=== PATIENT | male | born 1945 | race Caucasian/White ===

== ENCOUNTER 2023-08-21 22:40 | Observation (INO) | payer MEDICARE, SELFPAY ==
[2023-08-21] VITALS (48 sets, daily range): BP systolic 122–177; BP diastolic 57–123; PULSE 61–109; RESP 14–33; TEMP 36.4–36.8; O2SAT 89–100; BMI 20.1; BMI 20.6
--- NOTE | 2023-08-21 | CONS_ITS ---
CONSULTATION DATE: ??08/21/2023 REASON FOR CONSULTATION:? Incarcerated, recurrent right inguinal hernia. HISTORY OF PRESENT ILLNESS:? Patient is a 77-year-old male, presented to the ED with severe abdominal pain.? He was also noted to have tenderness in the right inguinal area.? His laboratory evaluation was normal.? He did undergo a CT scan of the abdomen and pelvis which revealed a right groin hernia with incarceration of a loop of small bowel, which was not reducible.? This was read as a femoral hernia, but on my review, appears to be possible recurrent inguinal hernia.? Patient did have a remote right inguinal hernia repair at 16 years of age.? Denies any other abdominal surgery.? He has had a known bulge there, which was usually reducible, but he has had intermittent symptoms and pain from it, but nothing like what began today.? He also had some nausea but no vomiting.?? He reports the pain is 10/10, was partially relieved with morphine.? His last meal was at approximately 9:00 this morning.? He forced himself to eat something even though he was not hungry.? He has been helping with his ?s care since she was recently hospitalized in [place] and doing more lifting and straining than normal.? He does take a baby aspirin daily.? Denies any nonsteroidal anti- inflammatory drugs or any other anticoagulants. PAST MEDICAL HISTORY:? Significant for coronary disease.? He has a remote history of coronary artery bypass grafting.? He has a history of asthma.? He is a former smoker.? He also has hyperlipidemia.? ALLERGIES:? He does report allergies to penicillin which causes hives. MEDICATIONS:? His home medications include albuterol, atorvastatin, buspirone, isosorbide mononitrate, losartan, nitroglycerin, omeprazole and zolpidem. PAST SURGICAL HISTORY:? As noted in the HPI.? It is also positive for a previous inguinal hernia repair. SOCIAL HISTORY:? He is .? He is a former smoker.? Denies alcohol use or illicit drug use. FAMILY HISTORY:? Noncontributory. REVIEW OF SYSTEMS:? Ten system review of systems is negative for recent weight loss or weight gain.? Denies increased fatigue or light-headedness.? Has had no earache or tinnitus.? No sinus congestion.? No sore throat or hoarseness.? No chest pain, palpitations or syncope.? No chronic cough, shortness of breath or hemoptysis.? He has had the abdominal pain and nausea.? No vomiting.? No melena, hematochezia or bright red blood per rectum.? No dysuria, frequency, urgency or hematuria.? No headaches, seizures or tremors.? No easy bruising or bleeding.? No heat or cold intolerance.? No polydipsia, polyphagia or polyuria. PHYSICAL EXAM:? VITAL SIGNS:? His blood pressure is 161/94.? Pulse is 88 and regular.? Respiratory rate is 18.? He is afebrile.? O2 saturation is 98% on room air.? GENERAL:? In general, he is a well developed, well nourished male, in mild distress secondary to abdominal pain. HEENT:? Normocephalic, atraumatic.? Sclerae anicteric.? Conjunctivae are not injected.? Oral mucosa is moist without lesions. NECK:? Supple.? There is no adenopathy, thyromegaly or JVD. LUNGS:? Clear bilaterally.? CARDIAC EXAM:? Regular rhythm and rate without appreciable murmurs, rubs or gallops. ABDOMEN:? Scaphoid.? There are positive bowel sounds.? It is currently non- tender, non-distended.? There is a tender mass over the right groin which is partially reducible.? There are no overlying skin changes or erythema or edema. SKIN:? Otherwise warm and dry without lesions, rashes or ulcers. NEURO EXAM:? Non-focal.? Non-lateralizing.? Patient is awake, alert, oriented with appropriate affect. DIAGNOSTIC TESTING:? CT images were personally reviewed, as was the laboratory evaluation. ASSESSMENT:? A 77-year-old male with acutely incarcerated right inguinal hernia, possible recurrent inguinal versus femoral hernia with small bowel loop incarcerated. PLAN:? To proceed with emergent reduction and repair of a hernia with assessment of the bowel.? We did discuss the possibility of need for bowel resection via the hernia versus via laparotomy, as well as the risks of bleeding, infection, bowel injury or leak, nerve injury, blood clot, pulmonary embolus, heart attack, anesthetic complications, need for further surgery or mesh removal.? All of his questions were answered.? Informed consent was obtained. CC:? Bryan Paz M.D. REDD
--- NOTE | 2023-08-21 | OP_ITS ---
OPERATION DATE: ??08/21/2023 PREOPERATIVE DIAGNOSIS:? Incarcerated right groin hernia with small bowel obstruction. POSTOPERATIVE DIAGNOSIS:? Incarcerated right femoral hernia. PROCEDURE:? Repair of right femoral hernia with primary closure and insertion of mesh in the floor of the inguinal canal. SURGEON:? Mitesh Thopmson M.D. ANESTHESIA:? General endotracheal. ESTIMATED BLOOD LOSS:? Less than 10 mL. INDICATIONS AND CONSENT:? Patient is a 77-year-old male with a long history of a right groin hernia that has been reducible.? He has had increasing symptoms from it recently, even today.? Developed severe abdominal pain and nausea, causing him to present to the emergency room, where he was found to have a small bowel obstruction with a loop of small bowel within a groin hernia, likely femoral.? This was partially reducible.? Indications, risks, benefits, alternatives of proceeding with herniorrhaphy with reduction and repair of the hernia were explained extensively to the patient, including risks of bleeding, infection, bowel injury or leak, recurrent hernia, nerve injury, blood clot, pulmonary embolus, heart attack, anesthetic complications, testicular injury, need for further surgery or mesh removal, possible knee for a laparotomy and small bowel resection.? All of his questions were answered.? Informed consent was obtained. PROCEDURE:? Patient brought to the operating room, placed in the supine position.? General anesthesia was induced.? He was prepped and draped in the usual sterile fashion.? Hernia was partially reduced but not completely.? A right groin incision was made with the scalpel blade and carried down through subcutaneous tissue using sharp dissection as well as electrocautery.? Sandra?s fascia was divided.? External oblique was attenuated.? It was opened along the direction of its fibers, down to the external inguinal ring.? Cord structures were mobilized and retracted.? Patient was noted to have a femoral hernia, which was also dissected out and freed up.? The floor of the inguinal canal was opened.? There was pre-peritoneal fat going through the inguinal canal.? The hernia defect was slightly enlarged, and this allowed reduction of the remaining pre-peritoneal fat.? It appeared that the small bowel had already reduced.? The wound was irrigated.? There was good hemostasis.? The femoral defect was then closed by re-approximating the lacunar ligament to the inguinal ligament, closing that extra space.? Care was taken to avoid undo tension or compression on the femoral vein.? Once this was complete, the wound was irrigated.? The floor was closed with interrupted 3-0 Vicryl suture.? There was no evidence of indirect hernia or direct hernia.? The patch was placed in the floor of the inguinal.? An opening was made for the cord structures, a keyhole.? The arms were placed around the cord structures.? The mesh was then secured circumferentially using interrupted 3-0 Vicryl sutures.? Care was taken to avoid undo tension on the cord structures.? The external oblique was then closed with a running 3-0 Vicryl suture.? The subcutaneous tissues were infiltrated with Exparel solution.? Sandra?s fascia was re-approximated with interrupted 3-0 Monocryl suture.? The skin was then closed with a running 4-0 subcuticular Monocryl suture and skin glue.? Sterile pressure dressing was applied.? Sponge and needle counts were correct x3 per nursing personnel.? Patient tolerated procedure, was extubated and sent to recovery room in good condition. CC:? Bryan Paz M.D. MTDMick
--- NOTE | 2023-08-21 15:40 | ECG_ITS ---
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
--- NOTE | 2023-08-21 15:47 | CT_ITS ---
[address] [address] Patient Name: YOSSI BOOTHE MRN: [id number] date: 1945 Sex: M Assigned Patient Location: ER Current Patient Location: .[facility] Accession/Order Number: [id number] Exam Date: 08/21/2023 16:54 Report Date: 08/21/2023 18:08 At the request of: SHAYNE INTERIANO Procedure: CT abdomen pelvis wo con EXAM: CT abdomen pelvis wo con HISTORY: right herna COMPARISON: 12/14/2019 TECHNIQUE: Axial CT imaging was performed through the abdomen and pelvis without intravenous contrast. Multiplanar reformats were performed. Dose reduction techniques were achieved by using automated exposure control and/or adjustment of mA and/or kV according to patient size and/or use of iterative reconstruction technique. FINDINGS: Lung bases: Lung bases are clear. No pleural effusion. There are bilateral pleural plaques. GI upper: Moderate hiatal hernia. Liver: Normal size and contour. Gallbladder: No significant abnormality. No cholelithiasis. Biliary system: No intra or extrahepatic biliary ductal dilatation. Spleen: Normal size. Pancreas: Unremarkable. Adrenal glands: Normal adrenal glands. Kidneys/ureters: Normal contours. No hydronephrosis. No nephrolithiasis or ureterolithiasis. Vessels: No aneurysm. Lymph Nodes: No lymphadenopathy. Small bowel: There is a transitional point in the efferent small bowel loop from the right femoral hernia with upstream dilatation of the small bowel loops, representing small bowel obstruction. Colon: No wall thickening or dilatation. There are innumerable colonic diverticulosis without evidence of acute diverticulitis. Constipation. Appendix: No findings of appendicitis. Peritoneal cavity: No free fluid or pneumoperitoneum. Lower : Prostatomegaly. There is trabeculation of the urinary bladder, likely due to chronic outlet obstruction. Bones: No acute bony abnormality. Soft tissues: There is a right femoral hernia with herniation of mesenteric fat and short segment of the small bowel loop. Additional findings: None. CT/CT abdomen pelvis wo con IMPRESSION: CT evidence of small bowel obstruction with transitional point in the right femoral hernia as described above. Moderate hiatal hernia. Electronically authenticated by: MURRAY TAI Date: 08/21/2023 18:08
[2023-08-21 15:48] LABS: Basophils Absolute Auto 0.1 10^3/uL (0.0-0.1); Basophils Percent Auto 0.6 % (0.2-2.0); Eosinophils Absolute Auto 0.1 10^3/uL (0.0-0.7); Eosinophils Percent Auto 1.1 % (0.9-7.0); Hematocrit 39.7 % (42.0-54.0); Hemoglobin 12.2 g/dL (14.0-18.0); Immature Granulocytes Abs Auto 0.02 10^3/uL (0.00-0.03); Immature Granulocytes Pct Auto 0.3 % (0.0-0.5); Lymphocytes Absolute Auto 1.2 10^3/uL (1.2-3.8); Lymphocytes Percent Auto 14.9 % (20.5-60.0); Mean Corpuscular HGB Conc 30.7 g/dL (29.9-35.2); Mean Corpuscular Hemoglobin 23.6 pg (25.9-34.0); Mean Corpuscular Volume 76.9 fL (80.0-94.0); Mean Platelet Volume 9.2 fL (9.5-13.5); Monocytes Absolute Auto 0.7 10^3/uL (0.3-0.8); Monocytes Percent Auto 8.9 % (1.7-12.0); Neutrophils Absolute Auto 5.9 10^3/uL (1.4-6.5); Neutrophils Percent Auto 74.2 % (43.0-75.0); Platelet Count 323 10^3/uL (150-450); Red Blood Count 5.16 10^6/uL (4.70-6.10); Red Cell Distribution Width 18.9 % (11.0-15.0)
[2023-08-21 16:03] LABS: Alanine Aminotransferase 28 U/L (16-63); Albumin Level 3.7 g/dL (3.4-5.0); Alkaline Phosphatase 85 U/L (46-116); Aspartate Amino Transferase 25 U/L (15-37); BUN Creatinine Ratio 17.2; Bilirubin Total 0.7 mg/dL (0.2-1.0); Calcium 9.3 mg/dL (8.5-10.1); Carbon Dioxide 31.9 mmol/L (21.0-32.0); Chloride 100 mmol/L (98-107); Estimated GFR (African America >60 (>=60); Estimated GFR (Non-African Ame >60 (>=60); Globulin 3.7 g/dL; Glucose 99 mg/dL (74-106); Potassium 3.9 mmol/L (3.5-5.1); Sodium 139 mmol/L (136-145); Total Protein 7.4 g/dL (6.4-8.2)
[2023-08-21 16:09] LABS: Lactate/Lactic Acid 1.2 mmol/L (0.4-2.0)
[2023-08-21] MEDS: MORPHINE SULFATE 2 MG/ML SYRINGE IV (16:40)
[2023-08-21] MEDS: KETOROLAC TROMETHAMINE 30 MG/ML VIAL 15 MG IVP (16:40)
[2023-08-21] MEDS: MORPHINE SULFATE 4 MG/ML VIAL 3 MG IV (17:48)
--- NOTE | 2023-08-21 17:58 | ED_ITS ---
HPI - Abdominal Pain General Chief Complaint: Abdominal Pain Stated Complaint: ABDOMINAL PAIN Time Seen by Provider: 08/21/23 15:38 Source: patient Mode of arrival: Wheelchair Limitations: no limitations History of Present Illness HPI narrative: The patient coming to us with the abdominal pain mostly lower abdomen as well as periumbilical that he has been having for the last 2 days There is also decreased p.o. intake no nausea no vomiting no change in bowel movement The patient pain is 10 out of 10 with no radiation and no burning with urination Related Data Home Medications Medication Instructions Recorded Confirmed albuterol sulfate 90 mcg/actuation 2 puff inhalation Q4H PRN 08/21/23 08/21/23 aerosol inhaler shortness of breath or wheezing atorvastatin 40 mg tablet 40 mg PO DAILY 08/21/23 08/21/23 buspirone 15 mg tablet 15 mg PO BID 08/21/23 08/21/23 isosorbide mononitrate 60 mg 60 mg PO DAILY 08/21/23 08/21/23 tablet,extended release 24 hr losartan 25 mg tablet 25 mg PO DAILY 08/21/23 08/21/23 nitroglycerin 0.4 mg sublingual 0.4 mg sublingual Q5M PRN chest 08/21/23 08/21/23 tablet pain omeprazole 20 mg capsule,delayed 20 mg PO DAILY 08/21/23 08/21/23 release zolpidem 10 mg tablet 10 mg PO .qhs 08/21/23 08/21/23 Allergies Allergy/AdvReac Type Severity Reaction Status Date / Time Penicillins Allergy Hives Verified 08/21/23 15:24 Review of Systems ROS Status of ROS 10 or more systems reviewed and unremarkable except as noted in history and below PFSH PFS Social History Smoking status: Former smoker Exam Narrative Exam Narrative: Nurses notes and vital signs reviewed and patient is not hypoxic. General: Well-appearing and in no apparent distress. Skin: Warm, dry, no pallor noted. No rash. Head: Normocephalic, atraumatic. Neck: Supple, non-tender. Eye: Pupils are equal, round and EOMI. No scleral icterus. Ears, Nose, Mouth, and Throat: TM are clear, no nasal mucosal hypertrophy. Oral mucosa is moist, no posterior oropharynx erythema, uvula is mid-line Cardiovascular: Regular Rate and Rhythm without murmur, gallop or rub. Respiratory: No accessory muscle use or respiratory distress. Lungs are clear to auscultation, no wheezing, rales or rhonchi Chest Wall: no tenderness Back: No midline thoracic or lumbar vertebral tenderness. No CVA tenderness Musculoskeletal: normal ROM, no calf or popliteal tenderness, no lower ext remity edema/swelling GI: Abdomen is soft, the patient have no specific tenderness in the abdomen but he does have a right inguinal swelling that is almost 4 x 5 cm oval in shape and nonreducible and tender, there is no swelling down his scrotum No tenderness to palpation. No rebound, guarding, or rigidity noted. Neurological: A&O x4. No cranial nerve dysfunction observed. No truncal ataxia. Moves all extremities. Sensation intact. Psychiatric: Cooperative and interactive. Normal mood and affect. Constitutional Vital Signs, click to edit/add: Last Vital Signs Temp 97.9 F 08/21/23 15:25 Pulse 88 08/21/23 18:40 Resp 32 H 08/21/23 18:40 BP 161/94 H 08/21/23 18:30 Pulse Ox 98 08/21/23 18:40 Course Vital Signs Vital signs: Vital Signs Temperature 97.9 F 08/21/23 15:25 Pulse Rate 72 08/21/23 15:25 Respiratory Rate 20 08/21/23 15:25 Blood Pressure 136/98 H 08/21/23 15:25 Pulse Oximetry 97 08/21/23 15:25 Temperature 97.9 F 08/21/23 15:25 Pulse Rate 88 08/21/23 18:40 Respiratory Rate 32 H 08/21/23 18:40 Blood Pressure 161/94 H 08/21/23 18:30 Pulse Oximetry 98 08/21/23 18:40 MDM - Abdominal Pain MDM Narrative Medical decision making narrative: Patient EKG showing sinus rhythm with a heart rate [address] elevation The patient presenting with a right femoral hernia pain as well as no nausea but decreased p.o. intake and his last meal was this morning at 9 AM CBC and chemistry showed no acute significant pathology but the patient CAT scan shows small bowel obstruction with a femoral hernia The patient case was discussed with Dr. Thompson in general surgery and the patient will be admitted under the hospitalist for possible surgery The patient will be n.p.o. The patient will be admitted under Dr. Quezada and the case was discussed with Dr. Guevara Lab Data Labs: Lab Results 08/21/23 Range/Units 15:37 WBC 8.0 (4.0-11.0) 10^3/uL RBC 5.16 (4.70-6.10) 10^6/uL Hgb 12.2 L (14.0-18.0) g/dL Hct 39.7 L (42.0-54.0) % MCV 76.9 L (80.0-94.0) fL MCH 23.6 L (25.9-34.0) pg MCHC 30.7 (29.9-35.2) g/dL RDW 18.9 H (11.0-15.0) % Plt Count 323 (150-450) 10^3/uL MPV 9.2 L (9.5-13.5) fL Neut % (Auto) 74.2 (43.0-75.0) % Lymph % (Auto) 14.9 L (20.5-60.0) % [place] % (Auto) 8.9 (1.7-12.0) % Eos % (Auto) 1.1 (0.9-7.0) % Baso % (Auto) 0.6 (0.2-2.0) % Neut # (Auto) 5.9 (1.4-6.5) 10^3/uL Lymph # (Auto) 1.2 (1.2-3.8) 10^3/uL [place] # (Auto) 0.7 (0.3-0.8) 10^3/uL Eos # (Auto) 0.1 (0.0-0.7) 10^3/uL Baso # (Auto) 0.1 (0.0-0.1) 10^3/uL Abs Immat Gran (auto) 0.02 (0.00-0.03) 10^3/uL Imm/Tot Granulo (auto) 0.3 (0.0-0.5) % Sodium 139 (136-145) mmol/L Potassium 3.9 (3.5-5.1) mmol/L Chloride 100 (98-107) mmol/L Carbon Dioxide 31.9 (21.0-32.0) mmol/L Anion Gap 11.0 BUN 16.0 (7.0-18.0) mg/dL Creatinine 0.93 (0.70-1.30) mg/dL Est GFR ( Amer) >60 (>=60) Est GFR (Non-Af Amer) >60 (>=60) BUN/Creatinine Ratio 17.2 Glucose 99 (74-106) mg/dL Lactate 1.2 (0.4-2.0) mmol/L Calcium 9.3 (8.5-10.1) mg/dL Total Bilirubin 0.7 (0.2-1.0) mg/dL AST 25 (15-37) U/L ALT 28 (16-63) U/L Alkaline Phosphatase 85 (46-116) U/L Troponin I High Sens 20.0 (4.0-76.1) pg/mL Total Protein 7.4 (6.4-8.2) g/dL Albumin 3.7 (3.4-5.0) g/dL Globulin 3.7 g/dL Albumin/Globulin Ratio 1.0 Discharge Plan Discharge Chief Complaint: Abdominal Pain Clinical Impression: Femoral hernia, SBO (small bowel obstruction) Patient Disposition: Admitted As Inpatient Time of Disposition Decision: 19:02
--- NOTE | 2023-08-21 19:18 | PM.GSCN ---
History of Present Illness Consult details Consult date: 08/21/23 Narrative: patient seen/examined/chart and ct scan images reviewed; consult dictated; 77 yo male with severe abd pain that began this morning; evidence of small bowel obstruction with incarcerated loop of small bowel in likely recurrent right inguinal hernia, verses right femoral hernia; plan emergent surgery for reduction/repair of hernia; likely mesh insertion; possibility of need for laparotomy/small bowel resection; informed consent obtained. PFSH PFS Social History Smoking status: Former smoker Meds Home Medications and Allergies Home Medications Medication Instructions Recorded Confirmed Type albuterol sulfate 90 mcg/actuation 2 puff inhalation Q4H PRN 08/21/23 08/21/23 History aerosol inhaler shortness of breath or wheezing atorvastatin 40 mg tablet 40 mg PO DAILY 08/21/23 08/21/23 History buspirone 15 mg tablet 15 mg PO BID 08/21/23 08/21/23 History isosorbide mononitrate 60 mg 60 mg PO DAILY 08/21/23 08/21/23 History tablet,extended release 24 hr losartan 25 mg tablet 25 mg PO DAILY 08/21/23 08/21/23 History nitroglycerin 0.4 mg sublingual 0.4 mg sublingual Q5M PRN chest 08/21/23 08/21/23 History tablet pain omeprazole 20 mg capsule,delayed 20 mg PO DAILY 08/21/23 08/21/23 History release zolpidem 10 mg tablet 10 mg PO .qhs 08/21/23 08/21/23 History Allergies Allergy/AdvReac Type Severity Reaction Status Date / Time Penicillins Allergy Hives Verified 08/21/23 15:24 Exam Constitutional Vital Signs, click to edit/add: Last Vital Signs Temp 97.9 F 08/21/23 15:25 Pulse 88 08/21/23 18:40 Resp 32 H 08/21/23 18:40 BP 161/94 H 08/21/23 18:30 Pulse Ox 98 08/21/23 18:40 Results Labs Labs: Abnormal lab results 08/21/23 Range/Units 15:37 Hgb 12.2 L (14.0-18.0) g/dL Hct 39.7 L (42.0-54.0) % MCV 76.9 L (80.0-94.0) fL MCH 23.6 L (25.9-34.0) pg RDW 18.9 H (11.0-15.0) % MPV 9.2 L (9.5-13.5) fL Lymph % (Auto) 14.9 L (20.5-60.0) % Diabetes panel 08/21/23 Range/Units 15:37 Sodium 139 (136-145) mmol/L Potassium 3.9 (3.5-5.1) mmol/L Chloride 100 (98-107) mmol/L Carbon Dioxide 31.9 (21.0-32.0) mmol/L BUN 16.0 (7.0-18.0) mg/dL Creatinine 0.93 (0.70-1.30) mg/dL Glucose 99 (74-106) mg/dL Calcium 9.3 (8.5-10.1) mg/dL AST 25 (15-37) U/L ALT 28 (16-63) U/L Alkaline Phosphatase 85 (46-116) U/L Total Protein 7.4 (6.4-8.2) g/dL Albumin 3.7 (3.4-5.0) g/dL Calcium panel 08/21/23 Range/Units 15:37 Calcium 9.3 (8.5-10.1) mg/dL Albumin 3.7 (3.4-5.0) g/dL Pituitary panel 08/21/23 Range/Units 15:37 Sodium 139 (136-145) mmol/L Potassium 3.9 (3.5-5.1) mmol/L Chloride 100 (98-107) mmol/L Carbon Dioxide 31.9 (21.0-32.0) mmol/L BUN 16.0 (7.0-18.0) mg/dL Creatinine 0.93 (0.70-1.30) mg/dL Glucose 99 (74-106) mg/dL Calcium 9.3 (8.5-10.1) mg/dL Adrenal panel 08/21/23 Range/Units 15:37 Sodium 139 (136-145) mmol/L Potassium 3.9 (3.5-5.1) mmol/L Chloride 100 (98-107) mmol/L Carbon Dioxide 31.9 (21.0-32.0) mmol/L BUN 16.0 (7.0-18.0) mg/dL Creatinine 0.93 (0.70-1.30) mg/dL Glucose 99 (74-106) mg/dL Calcium 9.3 (8.5-10.1) mg/dL Total Bilirubin 0.7 (0.2-1.0) mg/dL AST 25 (15-37) U/L ALT 28 (16-63) U/L Alkaline Phosphatase 85 (46-116) U/L Total Protein 7.4 (6.4-8.2) g/dL Albumin 3.7 (3.4-5.0) g/dL All other labs normal.
[2023-08-21] MEDS: CLINDAMYCIN PHOSPHATE/D5W 900 MG/50 ML PIGGYBACK 100 MG IV (19:46)
[2023-08-21] MEDS: BUPIVACAINE LIPOSOME/PF 266 MG/13.3 ML VIAL 13.3 MG INJ (20:50)
[2023-08-21] MEDS: BUPIVACAINE HCL 0.25% PF 25 MG/10 ML VIAL INJ (20:50)
[2023-08-21] MEDS: LABETALOL HCL 20 MG/4 ML SYRINGE 10 MG IV (21:20)
[2023-08-21] MEDS: LACTATED RINGER'S SOLUTION 1,000 ML 75 ML IV (21:34)
--- NOTE | 2023-08-21 21:36 | ECG_ITS ---
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
[2023-08-21] MEDS: METOPROLOL TARTRATE 5 MG/5 ML VIAL IVP (22:03)
[2023-08-21] MEDS: PANTOPRAZOLE SODIUM 40 MG VIAL IV (23:43)
[2023-08-22] VITALS (15 sets, daily range): BP systolic 106–125; BP diastolic 57–70; PULSE 52–70; RESP 16–18; TEMP 36.4–36.9; O2SAT 94–98
--- NOTE | 2023-08-22 00:51 | P.PN_ITS ---
Progress Note: Subjective Subjective Interval history: CC: Lower abdomen pain HPI: This is a very pleasant 77 years old male who presents with above complaints. Patient stating that he has been experiencing lower abdominal pain for the last 2 days. Nonradiating. Constant. Accompanied by decreased appetite. Evaluation in the emergency room has been significant for incarcerated hernia with loops of bowel trapped in it. Dr. Thompson from general surgery had been consulted and taking patient to the operating room this evening. Patient's past medical history significant for hypertension, dyslipidemia. Exam Narrative Exam Narrative: ROS: 1.General: no fever, chills, not in distress 2.HEENT: no TIRADO, no blurry vision, no swallow problems, no nasal congestion, no sore throat 3.Pulmonary: no cough, SOB, wheezes 4.CVS: no CP, no palpitations, no BERTRAND, no SOB, no intermittent claudication 5.GI: See complaints 6.: no renal colic, no hematuria, urinary frequency or urgency 7.Extremities: no edema 8.Neurological: no dizziness, vertigo, double or blurry vision, no no focal weakness, no paresthesia, no swallow or speech problems 9.Musculosceletal: no joint pains, no joint swelling, no back pain 10.Dermatological: no skin rashes, no lesions, no pruritus 11.Hematological: no bleeding, no hx/o clots 12.Endocrinological: no heat/cold intolerance, no hx/o diabetes 13.Psychiatric: no suicidal or homicidal thoughts Physical Exam: Not in distress, pleasant, lucid, cooperative, Head - atraumatic, eyes - pupils equal, round, reactive to light, extra ocular movement intact, MMM Neck - supple, thyroid not enlarged, LN not palpated Lungs - clear to auscultation, no dullness on percussion CVS - heart sounds S1, S2, no additional murmurs gallop, regular rate and rhythm Gastrointestinal?abdomen is soft, non-tender, non-distended, no organomegaly, positive bowel sounds Extremities no clubbing, cyanosis or edema Neurological?cranial nerve II?XII grossly intact, no meningeal signs, no cerebellar signs, no sensory deficit Musculoskeletal - joints, no effusions, ROM preserved Dermatological - the skin dry, warm, no rashes Psychiatric?patient is AAO X3, patient has normal affect Constitutional Vital Signs, click to edit/add: Last Vital Signs Temp 98.1 F 08/22/23 00:38 Pulse 70 08/22/23 00:38 Resp 16 08/22/23 00:38 BP 125/70 08/22/23 00:38 Pulse Ox 98 08/22/23 00:38 O2 Del Method Nasal Cannula 08/22/23 00:38 O2 Flow Rate 2 08/22/23 00:38 Progress Note: Objective Labs Labs: Short CBC 08/21/23 Range/Units 15:37 WBC 8.0 (4.0-11.0) 10^3/uL Hgb 12.2 L (14.0-18.0) g/dL Hct 39.7 L (42.0-54.0) % Plt Count 323 (150-450) 10^3/uL BMP 08/21/23 15:37 Sodium 139 Potassium 3.9 Chloride 100 Carbon Dioxide 31.9 BUN 16.0 Creatinine 0.93 Glucose 99 Calcium 9.3 Liver Function 08/21/23 Range/Units 15:37 Total Bilirubin 0.7 (0.2-1.0) mg/dL AST 25 (15-37) U/L ALT 28 (16-63) U/L Alkaline Phosphatase 85 (46-116) U/L Albumin 3.7 (3.4-5.0) g/dL Progress Note: A&P Assessment and Plan (1) Hypertension: Assessment and Plan: Resume home medications Monitor closely on telemetry Adjust as needed (2) Femoral hernia: Assessment and Plan: Incarcerated femoral hernia with bowel obstruction?follow-up with Dr. Magana Symptoms control Diet advancement as per surgery Plan END: As the provider for the telehealth service, I attest that I introduced myself to the patient, provided my credentials, disclosed by location and determined that based on a review of the patient's chart and discussion with members of the patient's treatment team, telemedicine via real-time, 2 way, and interactive audio and video platform is an appropriate and effective means of providing the service. ?The patient and I mutually agree this visit is appropriate for telem edicine. ?The virtual encounter was taken place from? [facility] [place]. ?The encounter took approximately 35 minutes. ?The nurse was present during the entire time and I was able to move the stethoscope in appropriate directions. ?The patient was evaluated at the Hospital ? Portions of this note may be dictated using [employer] voice recognition software. Variances in spelling and vocabulary are possible and unintentional. Not all errors may be caught and/or corrected. Please notify the author if any discrepancies are noted and/or if the meaning of any statement is unclear.? ? Patient verbally consented for treatment via video visit with patient currently located at the [facility] and provider located in [place]. Telemedicine Attestation Telemedicine Attestation I conducted this encounter from [[place]] via secure live, [id number] video conference with the patient, located at [facility] with [bowel ob struction]. Prior to the interview, the risks and benefits of telemedicine were discussed with the patient and verbal consent was obtained.
[2023-08-22] MEDS: 0.9 % SODIUM CHLORIDE 1,000 ML 75 ML IV (01:59)
[2023-08-22 06:09] LABS: Basophils Percent Auto 0.5 % (0.2-2.0); Eosinophils Absolute Auto 0.1 10^3/uL (0.0-0.7); Eosinophils Percent Auto 1.2 % (0.9-7.0); Hematocrit 33.2 % (42.0-54.0); Immature Granulocytes Abs Auto 0.02 10^3/uL (0.00-0.03); Immature Granulocytes Pct Auto 0.2 % (0.0-0.5); Lymphocytes Absolute Auto 0.8 10^3/uL (1.2-3.8); Lymphocytes Percent Auto 9.5 % (20.5-60.0); Mean Corpuscular HGB Conc 30.1 g/dL (29.9-35.2); Mean Corpuscular Hemoglobin 23.4 pg (25.9-34.0); Mean Corpuscular Volume 77.8 fL (80.0-94.0); Mean Platelet Volume 9.5 fL (9.5-13.5); Monocytes Percent Auto 11.4 % (1.7-12.0); Neutrophils Absolute Auto 6.6 10^3/uL (1.4-6.5); Neutrophils Percent Auto 77.2 % (43.0-75.0); Platelet Count 230 10^3/uL (150-450); Red Blood Count 4.27 10^6/uL (4.70-6.10); Red Cell Distribution Width 18.6 % (11.0-15.0); White Blood Count 8.6 10^3/uL (4.0-11.0)
[2023-08-22 06:59] LABS: Alanine Aminotransferase 23 U/L (16-63); Albumin Globulin Ratio 0.9; Albumin Level 2.6 g/dL (3.4-5.0); Alkaline Phosphatase 60 U/L (46-116); Anion Gap 5.6; Aspartate Amino Transferase 19 U/L (15-37); Bilirubin Total 0.6 mg/dL (0.2-1.0); Calcium 8.1 mg/dL (8.5-10.1); Carbon Dioxide 32.3 mmol/L (21.0-32.0); Chloride 104 mmol/L (98-107); Estimated GFR (African America >60 (>=60); Estimated GFR (Non-African Ame >60 (>=60); Glucose 90 mg/dL (74-106); Potassium 3.9 mmol/L (3.5-5.1); Sodium 138 mmol/L (136-145); Total Protein 5.6 g/dL (6.4-8.2)
[2023-08-22] MEDS: ISOSORBIDE MONONITRATE 60 MG TAB.ER.24H PO (09:02)
[2023-08-22] MEDS: ATORVASTATIN CALCIUM 40 MG TABLET PO (09:03)
[2023-08-22] MEDS: LOSARTAN POTASSIUM 25 MG TABLET PO (09:03)
[2023-08-22] MEDS: BUSPIRONE HCL 15 MG TABLET PO (09:04)
--- NOTE | 2023-08-22 10:45 | SWNOTE1 ---
SW met with pt to discuss dc needs. 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 Pt's had a fall and a brain bleed so she is currently staying with their son in [place]. Pt's son has 2 dogs and they are bigger and they are not disciplined and will jump on him. Pt's son offered to have pt come live with him but pt does not feel he will be able to due to the dogs and bathrooms being upstairs and downstairs not one on the main level. Pt has spoken to social workers at [place] in regards to getting extra help in the home for him and his . He has been told that since she is ambulating well she does not qualify for SNF. Pt has also been told about assisted living and private caregivers and those costs being out of pocket. Pt is aware of medicaid and the spending down method. Pt has contacted jobs and family services and will call them again in regards to any other resources for help in the home. At this time his plan is to go home and his will stay with son until he is recovered. DIVYA did mention passport services, but this is if he qualifies as well. At this time pt is aware of all services that SW is aware of.
--- NOTE | 2023-08-22 11:34 | CM.NOTE ---
Rounds made with Dr. Quezada. Dr. Quezada to discuss plan with General Surgeon and potential discharge today.
--- NOTE | 2023-08-22 11:41 | P.HP_ITS ---
Patient seen and examined. I personally reviewed patients, chart, evaluated him and examined him. I discussed the case with Michael Nelson NP. 77 y presented with acute RLQ pain - found to have incarcerated femoral hernia with SBO and was taken to OR emergency. Operative note is not available for review. Doing better today. Has minimal post op pain. Tolerating oral diet. Cleared for discharge by Dr CARLOS. Exam Comfortable, sitting on a recliner. CTA b/l , normal RR NT, ND, BS+ 2. Post surgical wound not examined. Assessment and Plan: Incarcerated femoral hernia with SBP s/p mesh repair. Tolerating diet. Advanced to soft. Cleared for discharge by Surgery. CAD: stable. Outpatient f/u HTN: c/w home meds. Hospital Course: Patient admitted for incarcerated right femoral hernia, associated SBO and was taken to OR for hernia repair. Was seen earlier today - did well post op and had minimal pain post operatively. His diet was advanced to regular diet and he tolerated it w/o any GI symptoms. Cleared for d/c by General Surgery. Patient to fu with PCP and Surgery. Admission Diagnosis Right incarcerated femoral hernia with SBO CAD HTN Discharge diagnosis as above Discharge status stable. H&P: HPI History of Present Illness Chief complaint: ABDOMINAL PAIN Femoral Hernia Narrative: Date/Time of Exam: 08/22/23 1040 This is a 77-year-old male patient with a past medical history as outlined below including a known femoral hernia, who presented to the ED yesterday complaining of severe lower right quadrant abdominal pain. Patient reports intermittent abdominal pain and poor appetite for the last several months but this severe, acute pain developed suddenly yesterday. He denies any nausea or vomiting or fevers/chills. As his pain was unrelenting he presented to the ED yesterday for further evaluation. Work-up in the ED revealed a femoral hernia with incarcerated loops of small bowel and a small bowel obstruction. Labs were unremarkable. An EKG reveals likely old inferior wall changes consistent with the pt's known CAD and CABG. Dr. Spain was contacted by the ED and the patient was taken emergently last night for a laparoscopic small bowel resection w/ possible mesh implantation. The patient is doing well this morning with his pain adequately controlled at this time. He is up ambulating in the room and in the hallway. He reports being hungry and requesting that his diet be advanced. He reports passing flatus but no bowel movement postoperatively. Bowel sounds are noted on exam. We defer further diet advancement to the surgical team. At the time of my exam the patient is alert and oriented and denies any acute complaints other than hunger. He denies any chest pain, shortness of breath, cough, nausea, vomiting, or diarrhea. He reports longstanding history of RLQ femoral hernia, but to his knowledge, has no hx of small bowel obstruction or incarcerated hernia in the past. He has been admitted to the hospitalist service with the general surgery team on consult. Review of Systems ROS Status of ROS 10 or more systems reviewed and unremarkable except as noted in history and below [facility] Medical History (Updated 08/22/23 @ 11:59 by Leslie Rodriguez NP) Anxiety ?F41.9 - Anxiety disorder, unspecified (ICD-10) CAD (coronary artery disease) ?I25.10 - Atherosclerotic heart disease of [place] coronary artery without angina pectoris (ICD-10) Chronic GERD ?K21.9 - Gastro-esophageal reflux disease without esophagitis (ICD-10) History of asbestosis ?Z87.09 - Personal history of other diseases of the respiratory system (ICD- 10) Hyperlipidemia ?E78.5 - Hyperlipidemia, unspecified (ICD-10) Hypertension ?I10 - Essential (primary) hypertension (ICD-10) Surgical History (Updated 08/22/23 @ 12:42 by Shaikh Pilar MD) 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 Smoking status: Former smoker Non-prescribed substance use: denies use Previous occupational history: Retired Highest level of school completed/degree received: Associate degree: occupational, technical, vocational program Are you now , , , , never or living with a partner: In a typical week, how many times do you talk on the telephone with family, friends, or neighbors: 3 or more times per week How often do you get together with friends or relatives: 3 or more times per week How often do you attend scientologist or orthodox services: never Little interest or pleasure in doing things: not at all Feeling down, depressed, or hopeless: several days Feel stressed/tense/nervous/anxious/difficulty sleeping: rather much Life stressors: other Life stressor details: diagnosed with dementia Due to disability, difficulty making decisions: No Do you think of yourself as: straight/heterosexual Gender Identity: male Meds Home Medications and Allergies Home Medications Medication Instructions Recorded Confirmed Type albuterol sulfate 90 mcg/actuation 2 puff inhalation Q4H PRN 08/21/23 08/21/23 History aerosol inhaler shortness of breath or wheezing atorvastatin 40 mg tablet 40 mg PO DAILY 08/21/23 08/21/23 History buspirone 15 mg tablet 15 mg PO TID 08/21/23 08/22/23 History isosorbide mononitrate 60 mg 60 mg PO DAILY 08/21/23 08/21/23 History tablet,extended release 24 hr losartan 25 mg tablet 25 mg PO DAILY 08/21/23 08/21/23 History nitroglycerin 0.4 mg sublingual 0.4 mg sublingual Q5M PRN chest 08/21/23 08/21/23 History tablet pain omeprazole 20 mg capsule,delayed 20 mg PO DAILY 08/21/23 08/21/23 History release zolpidem 10 mg tablet 10 mg PO .qhs 08/21/23 08/21/23 History Allergies Allergy/AdvReac Type Severity Reaction Status Date / Time Penicillins Allergy Hives Verified 08/21/23 15:24 Exam Constitutional Vital Signs, click to edit/add: Last Vital Signs Temp 97.6 F 08/22/23 07:40 Pulse 52 L 08/22/23 09:55 Resp 17 08/22/23 09:02 BP 106/57 08/22/23 07:40 Pulse Ox 98 08/22/23 07:40 O2 Del Method Nasal Cannula 08/22/23 07:40 O2 Flow Rate 2 08/22/23 07:40 Common normals: no apparent distress, oriented x3, alert and well nourished General appearance: cooperative Orientation/consciousness: Yes awake HENMT Common normals: normocephalic, head/scalp atraumatic, hearing grossly normal bilaterally, external ears normal, external nose normal and moist oral mucous membranes Head and scalp: normocephalic and atraumatic Face and sinus: normal facial exam Nose: external nose normal External ear: external ears normal Eye Common normals: PERRL, EOMs intact bilaterally, conjunctivae normal and no s cleral icterus General eye: normal appearance of both eyes Alignment: alignment normal Eyelid: eyelids normal Conjunctiva: conjunctiva(e) normal Pupil: PERRL Neck & C-Spine Common normals: full ROM, supple and no JVD Chest Common normals: inspection of chest normal Chest: symmetrical chest wall rise Respiratory Common normals: normal respiratory effort, no retractions, no use of accessory muscles and clear to auscultation bilaterally Effort & inspection: able to speak in complete sentences Auscultation: clear to auscultation bilaterally and other (Unusual diaphragmatic groan noted w/ inspiration) Cardio Common normals: no JVD, regular rate, regular rhythm, S1 normal heart sound, S2 normal heart sound, no gallops, no clicks, no murmurs, no rub and peripheral pulses 2+ throughout Rate: regular rate Rhythm: regular rhythm Heart sounds: S1 normal and S2 normal Peripheral pulses: pulses 2+ throughout GI Common normals: Normal to inspection, nondistended, normoactive bowel sounds present, soft to palpation, no hepatosplenomegaly, no masses and no bruits Palpation: soft and no hepatosplenomegaly Bladder/kidney exam: bladder normal to palpation Back & Pelvis Common normals: thoracic and lumbar spine normal to inspection Extremity Common normals: normal capillary refill and no pedal edema General: normal exam except as noted; no clubbing and no cyanosis Neuro Nery Coma Scale: GCS not evaluated Common normals: oriented x3, CN's II-XII intact bilaterally, moves all extremities, no focal motor deficits and no sensory deficits noted Sensorium/orientation: awake and alert Speech: speech normal Motor exam: strength 5/5 throughout Psych Common normals: mental status grossly normal, thought process normal, affect normal and activity/motor behavior normal Thought process: normal thought process Results Labs Labs: Short CBC 08/21/23 08/22/23 Range/Units 15:37 05:11 WBC 8.0 8.6 (4.0-11.0) 10^3/uL Hgb 12.2 L 10.0 L (14.0-18.0) g/dL Hct 39.7 L 33.2 L (42.0-54.0) % Plt Count 323 230 (150-450) 10^3/uL BMP 08/21/23 08/22/23 15:37 05:11 Sodium 139 138 Potassium 3.9 3.9 Chloride 100 104 Carbon Dioxide 31.9 32.3 H BUN 16.0 15.0 Creatinine 0.93 0.88 Glucose 99 90 Calcium 9.3 8.1 L Liver Function 08/21/23 08/22/23 Range/Units 15:37 05:11 Total Bilirubin 0.7 0.6 (0.2-1.0) mg/dL AST 25 19 (15-37) U/L ALT 28 23 (16-63) U/L Alkaline Phosphatase 85 60 (46-116) U/L Albumin 3.7 2.6 L (3.4-5.0) g/dL Pulse Oximetry Attestation: I have reviewed the pertinent pulse oximetry results. Assessment and Plan Assessment and Plan (1) SBO (small bowel obstruction): Assessment and Plan: ACUTE * Adm inpatient * SBO 2/2 femoral hernia w/ incarcerated loops of SB * Consult Surgery - we appreciate Dr Spain assistance with this pt's care * S/p emergent surgery yesterday evening for laparoscopic SB resection and li lynne mesh placement (surgical note not available at time of exam for full procedures performed) * Defer Diet, pain management, and antibiotics to the surgical team. * Diet currently clear liquids - defer to surgery for advancement * Positive flatus and bowel sounds, but no BM to date. * NS IVF at 75 ml/hr for hydration * Strict I&O * No evidence of infection at this time * CBC/CMP daily (2) Hypertension: Assessment and Plan: CHRONIC * Continue home ARB, Imdur, BB. * PRN IVP Hydralazine for uncontrolled breakthrough HTN * BP currently well controlled (3) CAD (coronary artery disease): Assessment and Plan: CHRONIC * Continue home BB, ARB, statin, PRN NTG * Pt does not take daily low dose aspirin at home - defer to outpatient cardiology for management (4) Anxiety: Assessment and Plan: CHRONIC * Continue home Buspar (5) History of asbestosis: Assessment and Plan: CHRONIC * Continue home PRN albuterol * BLL/diaphragmatic groan noted on exam which pt reports is chronic - likely 2/2 known asbestosis
[2023-08-22 11:48] LABS: Bilirubin Urine NEGATIVE (NEGATIVE); Blood Urine NEGATIVE (NEGATIVE); Clarity Urine CLEAR (CLEAR); Color Urine YELLOW (YELLOW); Glucose Urine UA NEGATIVE (NEGATIVE); Ketones Urine NEGATIVE (NEGATIVE); Leukocyte Esterase Urine NEGATIVE (NEGATIVE); Nitrite Urine NEGATIVE (NEGATIVE); Protein Urine NEGATIVE (NEG/TRACE); Specific Gravity Urine 1.025 (1.005-1.025); Urobilinogen Urine 0.2 EU/dL (0.2-1.0)
[2023-08-22 11:49] LABS: Urine Microscopic Indicated NO
--- NOTE | 2023-08-22 14:20 | SWNOTE1 ---
At this time pt is inpatient. SW reviewed Important Message from Medicare form with pt. He does not have any questions at this time, he did ask if he was being discharged. SW let him know she is not sure but will let nurse know pt is asking. At this time pt does not have any questions in regards to IMM form, pt signed form. Original given to pt and copy placed on chart.
--- NOTE | 2023-08-22 15:20 | PM.GSPN ---
Progress Note: A&P Assessment and Plan (1) SBO (small bowel obstruction): Assessment and Plan: resolved; doing well; ok for discharge to home; f/u with me in 7-10 days, no lifting > 10 lbs for 4 weeks; no driving; may shower, no tub baths for 10 days; take tylenol as needed for pain; call with problems/questions. (2) Hypertension: (3) CAD (coronary artery disease): (4) Anxiety: (5) History of asbestosis: Subjective Subjective Interval history: POS# 1 s/p right femoral herniorrhaphy with mesh insertion for incarcerated femoral hernia with small bowel obstruction; doing well, denies abd pain; no N/V; not taking any pain meds; eating regular diet; voiding well, no bms; ambulating without difficulty. Exam Narrative Exam Narrative: abd: soft, nontender, nondistended; normal bs; incision without erythema or drainage; glue intact; no drainage or hematoma. Constitutional Vital Signs, click to edit/add: Last Vital Signs Temp 98.5 F 08/22/23 14:19 Pulse 56 L 08/22/23 14:23 Resp 18 08/22/23 14:19 BP 106/61 08/22/23 14:19 Pulse Ox 94 L 08/22/23 14:19 O2 Del Method Room Air 08/22/23 14:19 O2 Flow Rate 2 08/22/23 07:40
--- NOTE | 2023-08-22 15:47 | SWNOTE1 ---
Pt is in observation status. SW went back in and let pt know and reviewed BESS form with pt. Pt voiced understanding and did not have any questions at this time. Pt signed form, original given to pt and copy placed in chart.
--- NOTE | 2023-08-22 17:29 | NUTR.NU ---
Patient's MST score 5 indicates high nutritional risk d/t weight loss and diminished appetite. PO intakes in-house are 100% and weight loss was not able to be verified. Pt has chronic illness, was in [facility] for less than 24 hours. High risk for malnutrition not supported at this time.
--- NOTE | 2023-08-23 15:52 | CM.DCFOLLOWU ---
Person spoke with: patient How are you feeling? well How is your pain? just sore Did you understand your discharge instructions? yes Do you have any questions about your discharge instructions? no Were you given any prescriptions at discharge? no Were you able to get your prescriptions filled? N/A Do you understand how to take your medications as ordered? yes Do you have any questions about your follow up appointment and do you plan to keep your follow up appointment? no questions, scheduled follow up with Dr. Thompson Is there anything else that you would like to discuss? no Questions/Comments/Concerns/Other:
== END 2023-08-22 16:38 | disposition home or self-care (01) ==
PROVIDERS: Emergency Medicine; Surgery; Admitting Provider Internal Medicine; PCP Family Medicine; Visit Provider Nurse Practitioner
PROC: (CPT 49553; principal; 2023-08-21 19:30)
DX: K41.30 Unilateral femoral hernia, with obstruction, without gangrene, not specified as recurrent (principal); I10 Essential (primary) hypertension; I25.10 Atherosclerotic heart disease of native coronary artery without angina pectoris; F41.9 Anxiety disorder, unspecified; E78.5 Hyperlipidemia, unspecified; K21.9 Gastro-esophageal reflux disease without esophagitis; Z87.09 Personal history of other diseases of the respiratory system; Z90.2 Acquired absence of lung [part of]; Z98.890 Other specified postprocedural states; Z87.891 Personal history of nicotine dependence; Z79.899 Other long term (current) drug therapy
CPT/HCPCS: 49553; 36415; 74176; 80053; 81003; 83605; 84484; 85025; 93005; 94761; 96374; 96375; 96376; 99285; C1781; G0378; J2704; Q3014

== ENCOUNTER 2023-09-23 10:49 | Outpatient (OUT) | payer MEDICARE, SELFPAY ==
--- NOTE | 2023-09-23 11:08 | US_ITS ---
[address] [address] Patient Name: YOSSI BOOTHE MRN: [id number] date: 1945 Sex: M Assigned Patient Location: [place] Current Patient Location: [place] Accession/Order Number: [id number] Exam Date: 09/23/2023 11:13 Report Date: 09/23/2023 12:42 At the request of: MEGAN HARRISON Procedure: US scrotum EXAMINATION: US scrotum HISTORY: Epididymitis COMPARISON: No relevant comparison available. TECHNIQUE: High-resolution sonographic imaging of the scrotum and contents was performed. FINDINGS: The right testicle is normal in size, contour and homogeneous echotexture measuring 3.9 x 1.4 x 3.4 cm. Normal color and Doppler flow The right epididymis is normal. Small right hydrocele. Moderate right varicocele. The left testicle is normal in size, contour and homogeneous echotexture measuring 4.2 x 1.7 x 2.7 cm. Normal color and Doppler flow The left epididymis is normal. Small left hydrocele. Moderate left varicocele. US/US scrotum IMPRESSION: No evidence of epididymitis Moderate bilateral varicoceles Electronically authenticated by: YOSSI BROWN Date: 09/23/2023 12:42
== END 2023-09-23 10:50 | disposition home or self-care (01) ==
LOC: US 10:49
PROVIDERS: PCP Family Medicine; Visit Provider Urology
DX: N45.1 Epididymitis (principal); I86.1 Scrotal varices
CPT/HCPCS: 76870

== ENCOUNTER 2023-09-23 21:05 | Observation (INO) | payer MEDICARE, SELFPAY ==
[2023-09-23] VITALS (20 sets, daily range): BP systolic 124–164; BP diastolic 78–113; PULSE 77–106; RESP 6–33; TEMP 36.6; O2SAT 93–99
--- NOTE | 2023-09-23 21:25 | ED.ABDPAIN1 ---
HPI - Abdominal Pain General Chief Complaint: Abdominal Pain Stated Complaint: SOB Time Seen by Provider: 09/23/23 21:09 Source: patient Mode of arrival: Wheelchair Limitations: no limitations History of Present Illness HPI narrative: 77-year-old male presents for abdominal pain and not having a bowel movement. He recently had inguinal hernia surgery and then had trouble urinating and a Novak catheter was placed two days ago. No fever. He believes he is constipated. His appetite has been poor. Much of history is obtained from his doctor who accompanies him but also some from the patient. The pain is moderate to severe. Related Data Home Medications Medication Instructions Recorded Confirmed albuterol sulfate 90 mcg/actuation 2 puff inhalation Q4H PRN 08/21/23 08/21/23 aerosol inhaler shortness of breath or wheezing atorvastatin 40 mg tablet 40 mg PO DAILY 08/21/23 08/21/23 buspirone 15 mg tablet 15 mg PO TID 08/21/23 08/22/23 isosorbide mononitrate 60 mg 60 mg PO DAILY 08/21/23 08/21/23 tablet,extended release 24 hr losartan 25 mg tablet 25 mg PO DAILY 08/21/23 08/21/23 nitroglycerin 0.4 mg sublingual 0.4 mg sublingual Q5M PRN chest 08/21/23 08/21/23 tablet pain omeprazole 20 mg capsule,delayed 20 mg PO DAILY 08/21/23 08/21/23 release zolpidem 10 mg tablet 10 mg PO .qhs 08/21/23 08/21/23 Allergies Allergy/AdvReac Type Severity Reaction Status Date / Time Penicillins Allergy Hives Verified 08/21/23 15:24 Review of Systems ROS Narrative A ten point review of systems is negative except as noted above. [facility] Medical History (Updated 09/23/23 @ 22:57 by Kashif Thapa MD) Anxiety ?F41.9 - Anxiety disorder, unspecified (ICD-10) CAD (coronary artery disease) ?I25.10 - Atherosclerotic heart disease of [place] coronary artery without angina pectoris (ICD-10) Chronic GERD ?K21.9 - Gastro-esophageal reflux disease without esophagitis (ICD-10) Femoral hernia ?K41.90 - Unilateral femoral hernia, without obstruction or gangrene, not specified as recurrent (ICD-10) History of asbestosis ?Z87.09 - Personal history of other diseases of the respiratory system (ICD-10) Hyperlipidemia ?E78.5 - Hyperlipidemia, unspecified (ICD-10) Hypertension ?I10 - Essential (primary) hypertension (ICD-10) Surgical History (Updated 08/22/23 @ 12:42 by Shaikh Pilar MD) 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 Smoking status: Former smoker Non-prescribed substance use: denies use Previous occupational history: Retired Highest level of school completed/degree received: Associate degree: occupational, technical, vocational program Are you now , , , , never or living with a partner: In a typical week, how many times do you talk on the telephone with family, friends, or neighbors: 3 or more times per week How often do you get together with friends or relatives: 3 or more times per week How often do you attend samaritan or episcopalian services: never Little interest or pleasure in doing things: not at all Feeling down, depressed, or hopeless: several days Feel stressed/tense/nervous/anxious/difficulty sleeping: rather much Life stressors: other Life stressor details: diagnosed with dementia Due to disability, difficulty making decisions: No Do you think of yourself as: straight/heterosexual Gender Identity: male Exam Narrative Exam Narrative: Nurses note and vital signs reviewed and patient is not hypoxic. General: The patient appears well and in no apparent distress. Patient is resting comfortably on cart. Skin: Warm, dry, no pallor noted. There is no rash noted. Head: Normocephalic, atraumatic Eye: Normal conjunctiva, no drainage Ears, Nose, Mouth, and Throat: oral mucosa is moist. Nares patent. Cardiovascular: Regular Rate and Rhythm Respiratory: Patient is in no distress, no accessory muscle use, lungs are clear to auscultation, no wheezing, rales or rhonchi Back: non-tender. GI: tenderness present on the right side. No distention Musculoskeletal: The patient has no evidence of calf tenderness, no pitting edema, symmetrical pulses noted bilaterally Neurological: A&O, normal speech Psychiatric: Cooperative Constitutional Vital Signs, click to edit/add: Last Vital Signs Temp 97.8 F 09/23/23 21:09 Pulse 91 H 09/23/23 22:30 Resp 32 H 09/23/23 22:30 BP 124/86 09/23/23 22:20 Pulse Ox 98 09/23/23 22:30 O2 Del Method Room Air 09/23/23 21:09 Course Vital Signs Vital signs: Vital Signs Temperature 97.8 F 09/23/23 21:09 Pulse Rate 94 H 09/23/23 21:09 Respiratory Rate 18 09/23/23 21:09 Blood Pressure 161/92 H 09/23/23 21:09 Pulse Oximetry 99 09/23/23 21:09 Oxygen Delivery Method Room Air 09/23/23 21:09 Temperature 97.8 F 09/23/23 21:09 Pulse Rate 91 H 09/23/23 22:30 Respiratory Rate 32 H 09/23/23 22:30 Blood Pressure 124/86 09/23/23 22:20 Pulse Oximetry 98 09/23/23 22:30 Oxygen Delivery Method Room Air 09/23/23 21:09 MDM - Abdominal Pain MDM Narrative Medical decision making narrative: CAT scan findings are discussed with the patient and his doctor who is a nurse. I do not suspect partial bowel obstruction at this point and he'll be admitted for observation and hydration. Differential Diagnosis Differential diagnosis: Likely abdominal pain, constipation, diverticulitis, gastroenteritis and small bowel obstruction Lab Data Attestation: I reviewed the patient's lab results. Labs: Lab Results 09/23/23 09/23/23 Range/Units 21:15 21:30 WBC 10.5 (4.0-11.0) 10^3/uL RBC 5.79 (4.70-6.10) 10^6/uL Hgb 13.8 L (14.0-18.0) g/dL Hct 44.0 (42.0-54.0) % MCV 76.0 L (80.0-94.0) fL MCH 23.8 L (25.9-34.0) pg MCHC 31.4 (29.9-35.2) g/dL RDW 19.9 H (11.0-15.0) % Plt Count 286 (150-450) 10^3/uL MPV 9.2 L (9.5-13.5) fL Neut % (Auto) 77.9 H (43.0-75.0) % Lymph % (Auto) 11.0 L (20.5-60.0) % [place] % (Auto) 10.2 (1.7-12.0) % Eos % (Auto) 0.3 L (0.9-7.0) % Baso % (Auto) 0.3 (0.2-2.0) % Neut # (Auto) 8.2 H (1.4-6.5) 10^3/uL Lymph # (Auto) 1.2 (1.2-3.8) 10^3/uL [place] # (Auto) 1.1 H (0.3-0.8) 10^3/uL Eos # (Auto) 0.0 (0.0-0.7) 10^3/uL Baso # (Auto) 0.0 (0.0-0.1) 10^3/uL Abs Immat Gran (auto) 0.03 (0.00-0.03) 10^3/uL Imm/Tot Granulo (auto) 0.3 (0.0-0.5) % Sodium 130 L (136-145) mmol/L Potassium 3.8 (3.5-5.1) mmol/L Chloride 94 L (98-107) mmol/L Carbon Dioxide 26.8 (21.0-32.0) mmol/L Anion Gap 13.0 BUN 20.0 H (7.0-18.0) mg/dL Creatinine 1.22 (0.70-1.30) mg/dL Est GFR ( Amer) >60 (>=60) Est GFR (Non-Af Amer) 58 L (>=60) BUN/Creatinine Ratio 16.4 Glucose 138 H (74-106) mg/dL Calcium 9.9 (8.5-10.1) mg/dL Total Bilirubin 1.1 H (0.2-1.0) mg/dL Direct Bilirubin 0.2 (0.0-0.2) mg/dL AST 28 (15-37) U/L ALT 21 (16-63) U/L Alkaline Phosphatase 79 (46-116) U/L Total Protein 8.4 H (6.4-8.2) g/dL Albumin 3.9 (3.4-5.0) g/dL Globulin 4.5 g/dL Albumin/Globulin Ratio 0.9 Amylase 50 (25-115) U/L Lipase 39.0 (16.0-77.0) U/L Urine Color Dk. yellow (YELLOW) Urine Clarity Clear (CLEAR) Urine pH 5.0 (5.0-9.0) Ur Specific [place] >=1.030 A (1.005-1.025) Urine Protein >=300 A (NEG/TRACE) mg/dL Urine Glucose (UA) Negative (NEGATIVE) mg/dL Urine Ketones 15 A (NEGATIVE) mg/dL Urine Occult Blood Large A (NEGATIVE) Urine Nitrite Negative (NEGATIVE) Urine Bilirubin Small A (NEGATIVE) Urine Urobilinogen 0.2 (0.2-1.0) EU/dL Ur Leukocyte Esterase Trace A (NEGATIVE) Imaging Data CT scan - abdomen: Radiologist's impression: Procedure: CT abdomen pelvis w con EXAMINATION: CT Abdomen/Pelvis REPORT DATE: 09/23/2023 10:34 PM EDT INDICATION: Pain, recent inguinal hernia surgery COMPARISON(S): CT abdomen and pelvis 08/21/2023 TECHNIQUE: Contrast-enhanced axial CT through the abdomen and pelvis was performed. Coronal and sagittal reformats were provided. Individualized dose optimization techniques were used for this CT. FINDINGS: SUPPORT DEVICES: None. LOWER CHEST Calcified pleural plaques are noted bilaterally at the lung bases. Scarring and/or atelectasis at the lung bases. ABDOMEN/PELVIS Liver: Normal. Gallbladder/biliary: Normal gallbladder. No biliary ductal dilation. Pancreas: Normal. Spleen: Normal. Adrenal glands: Normal. Kidneys and ureters: Normal. Bladder: Novak catheter in place limiting evaluation of the urinary bladder. Reproductive organs: Mild prostatomegaly. Vessels: Calcific atherosclerosis of the abdominal aorta which is normal caliber. Major venous structures of the abdomen are patent. Stomach/bowel: Large hiatal hernia containing fluid which may be seen with reflux. Small and large bowel are fluid filled. The small bowel is prominent measuring 3.8 cm in diameter without a definite transition point although there is a caliber change in the left midabdomen which could reflect partial obstruction. Large bowel is normal caliber. There are numerous colonic diverticula noted without evidence of acute diverticulitis. Lymph nodes: No lymphadenopathy. Peritoneum: No intraperitoneal free air. No intraperitoneal free fluid. MUSCULOSKELETAL: Abdominal wall: Postsurgical changes consistent with repair of right inguinal hernia. No evidence for recurrent hernia. Bones: Chronic appearing anterior wedge deformity at L3. Status post median sternotomy. Likely thoracotomy on the left. IMPRESSION: Dilated loops of small bowel with caliber change seen at the left mid abdomen which could reflect partial obstruction. The large bowel is fluid-filled and prominent but pathologically dilated. Findings could also be seen with enteritis/colitis. Status post right inguinal hernia repair. No evidence for recurrent hernia. Large hiatal hernia with distal esophagus containing fluid consistent with reflux. Electronically authenticated by: ASHLYN MEDRANO Date: 09/23/2023 22:44 Discharge Plan Discharge Chief Complaint: Abdominal Pain Clinical Impression: Abdominal pain Patient Disposition: Admitted as Observation Time of Disposition Decision: 22:57 Condition: Good
[2023-09-23 21:30] LABS: Basophils Percent Auto 0.3 % (0.2-2.0); Eosinophils Percent Auto 0.3 % (0.9-7.0); Hemoglobin 13.8 g/dL (14.0-18.0); Immature Granulocytes Abs Auto 0.03 10^3/uL (0.00-0.03); Immature Granulocytes Pct Auto 0.3 % (0.0-0.5); Lymphocytes Absolute Auto 1.2 10^3/uL (1.2-3.8); Mean Corpuscular HGB Conc 31.4 g/dL (29.9-35.2); Mean Corpuscular Hemoglobin 23.8 pg (25.9-34.0); Mean Platelet Volume 9.2 fL (9.5-13.5); Monocytes Absolute Auto 1.1 10^3/uL (0.3-0.8); Monocytes Percent Auto 10.2 % (1.7-12.0); Neutrophils Absolute Auto 8.2 10^3/uL (1.4-6.5); Neutrophils Percent Auto 77.9 % (43.0-75.0); Platelet Count 286 10^3/uL (150-450); Red Blood Count 5.79 10^6/uL (4.70-6.10); Red Cell Distribution Width 19.9 % (11.0-15.0); White Blood Count 10.5 10^3/uL (4.0-11.0)
[2023-09-23 21:44] LABS: Bilirubin Urine SMALL (NEGATIVE); Blood Urine LARGE (NEGATIVE); Clarity Urine CLEAR (CLEAR); Color Urine DK. YELLOW (YELLOW); Glucose Urine UA NEGATIVE (NEGATIVE); Ketones Urine 15 mg/dL (NEGATIVE); Leukocyte Esterase Urine TRACE (NEGATIVE); Nitrite Urine NEGATIVE (NEGATIVE); Protein Urine >=300 mg/dL (NEG/TRACE); Specific Gravity Urine >=1.030 (1.005-1.025); Urobilinogen Urine 0.2 EU/dL (0.2-1.0)
[2023-09-23 21:45] LABS: BUN Creatinine Ratio 16.4; Calcium 9.9 mg/dL (8.5-10.1); Carbon Dioxide 26.8 mmol/L (21.0-32.0); Chloride 94 mmol/L (98-107); Estimated GFR (African America >60 (>=60); Estimated GFR (Non-African Ame 58 (>=60); Glucose 138 mg/dL (74-106); Potassium 3.8 mmol/L (3.5-5.1); Sodium 130 mmol/L (136-145)
--- NOTE | 2023-09-23 21:50 | PC.NURSE ---
pt presents to ED because patient states that he was here on the of last month and was dx with inguinal hernia, pt then had surgery by dr. villa and states he healed up well. pt states he was then in ER recently for constipation and was given stool softeners and discharged. patient states that he hasn't had a bowel movement in 3 days and when he did it was just small clumps. patient states he isn't really eating or drinking anything and now he has abdominal pain and sob. patient did take stool softeners, mag citrate, and a suppository today with no relief. patient states that 3 days ago he started having trouble with urinating and was placed on mobic and another medication. patient the next day still hadn't urinated and was told to discontinue the second medication but continue the mobic and was told to come into the office and had a fishman placed by dr. william. on arrival to ED urine sample collected. patient also started c/o nausea on arrival to ED.
[2023-09-23 21:51] LABS: Alanine Aminotransferase 21 U/L (16-63); Albumin Globulin Ratio 0.9; Albumin Level 3.9 g/dL (3.4-5.0); Alkaline Phosphatase 79 U/L (46-116); Amylase 50 U/L (25-115); Aspartate Amino Transferase 28 U/L (15-37); Bilirubin Direct 0.2 mg/dL (0.0-0.2); Bilirubin Total 1.1 mg/dL (0.2-1.0); Globulin 4.5 g/dL; Total Protein 8.4 g/dL (6.4-8.2)
[2023-09-23] MEDS: ONDANSETRON PF 4 MG/2 ML VIAL IV (22:18)
[2023-09-23] MEDS: 0.9 % SODIUM CHLORIDE 1,000 ML 125 ML IV (23:31)
[2023-09-23] MEDS: MORPHINE SULFATE 4 MG/ML VIAL 2 MG IV (23:31)
--- NOTE | 2023-09-23 23:39 | ECG_ITS ---
[facility] Test Date: 2023-09-23 Pat Name: YOSSI BOOTHE Department: Room: - Gender: Male [employer] Supervisor: : 1945 Requested By: JADON RAY Order Number: [id number] Reading MD: SAAD NOGUEIRA Measurements Intervals [place] Rate: 83 P: 66 MT: 182 QRS: 53 QRSD: 102 T: 118 QT: 392 QTc: 432 Interpretive Statements 1100 Sinus rhythm [address] depression [address] & [place] abnormality 9150 abnormal ECG Compared to ECG 08/21/2023 21:39:26 Possible ischemia no longer present ST (T wave) deviation still present Electronically Signed On 09-28-2023 6:57:26 EST by SAAD NOGUEIRA
[2023-09-24] VITALS: BP 141/69; PULSE 80; RESP 24; O2SAT 94
[2023-09-24 00:39] VITALS: BP 135/71; PULSE 72; RESP 18; TEMP 36.7; O2SAT 92; BMI 19.3
--- NOTE | 2023-09-24 01:43 | W.PM.TELEPN ---
Progress Note: Subjective Subjective Interval history: The patient is a 77-year-old male who recently underwent an inguinal hernia repair. He has had decreased oral intake and actually a 40 pound weight loss over the past 6 months. He has been seen by multiple physicians. Recently, he had developed urinary retention and he saw a urologist. Novak catheter was placed during that time. He also had constipation for the past 3 days and took MiraLAX, stool softener and suppository without any relief. He presented to the ED today with 9 out of [address] showed partial small bowel obstruction versus enteritis. Prior to my evaluation, the patient actually had a bout of loose stools. He is being admitted for further evaluation. Exam Narrative Exam Narrative: General : Alert and oriented x3 HEENT : Extraocular movements intact, pupils equal round and reactive to light and accommodation Neck: Supple, no JVD Chest: Clear to auscultation bilaterally, no wheezes Heart: Regular rate and rhythm, S1 and S2 heard Abdomen: Soft nontender nondistended. Extremities: No clubbing cyanosis or edema Neurologically: Moving all 4 extremities Skin: No rashes Constitutional Vital Signs, click to edit/add: Last Vital Signs Temp 98.1 F 09/24/23 00:39 Pulse 72 09/24/23 00:39 Resp 18 09/24/23 00:39 BP 135/71 09/24/23 00:39 Pulse Ox 92 L 09/24/23 00:39 O2 Del Method Room Air 09/24/23 00:39 Progress Note: Objective Labs Labs: Short CBC 09/23/23 Range/Units 21:15 WBC 10.5 (4.0-11.0) 10^3/uL Hgb 13.8 L (14.0-18.0) g/dL Hct 44.0 (42.0-54.0) % Plt Count 286 (150-450) 10^3/uL BMP 09/23/23 21:15 Sodium 130 L Potassium 3.8 Chloride 94 L Carbon Dioxide 26.8 BUN 20.0 H Creatinine 1.22 Glucose 138 H Calcium 9.9 Liver Function 09/23/23 Range/Units 21:15 Total Bilirubin 1.1 H (0.2-1.0) mg/dL Direct Bilirubin 0.2 (0.0-0.2) mg/dL AST 28 (15-37) U/L ALT 21 (16-63) U/L Alkaline Phosphatase 79 (46-116) U/L Albumin 3.9 (3.4-5.0) g/dL Urine 09/23/23 Range/Units 21:30 Urine Color Dk. yellow (YELLOW) Urine Clarity Clear (CLEAR) Urine pH 5.0 (5.0-9.0) Ur Specific [place] >=1.030 A (1.005-1.025) Urine Protein >=300 A (NEG/TRACE) mg/dL Urine Glucose (UA) Negative (NEGATIVE) mg/dL Progress Note: A&P Assessment and Plan (1) Abdominal pain: Plan The patient is a 77-year-old male with above medical problems, presenting with abdominal pain. Abdominal pain -Likely from partial small bowel obstruction versus enteritis -Hold off on starting antibiotics, patient was previously on Levaquin prior to admission -Check C. difficile - NPO -IV fluids -Pain control DVT Prophylaxis -Lovenox, SCDs Medication review -Medication reconciliation form not yet completed, awaiting on medications to be verified Goals of care -Full code Communications -Discussed with the emergency room physician -Discussed with the bedside nurse -Patient updated of plan of care, all questions answered to their satisfaction Disposition -Home when medically stable Telemedicine clause -As the provider of this telehealth evaluation, requested by the patient's evaluating physician, I attest that I introduced myself to the patient, provided my credentials and determined that telemedicine via a real-time, two-way interactive audio and video platform is an appropriate and effective means of providing this service. -I reviewed the patient's chart and had a discussion with the member of the patient's treatment team. -The patient and I mutually agreed with continuation of this evaluation via telemedicine. The patient consented for the telemedicine evaluation. -This virtual encounter was taken place from [place], [place]. The encounter was approximately 35 minutes. The nurse was present during the entire time of the encounter and was able to remove the stethoscope and appropriate directions. The patient was evaluated at [facility] Telemedicine Attestation Telemedicine Attestation I conducted this encounter from [] via secure live, [id number] video conference with the patient, located at [facility] with []. Prior to the interview, the risks and benefits of telemedicine were discussed with the patient and verbal consent was obtained.
[2023-09-24 06:00] VITALS: BP 122/74; PULSE 62; RESP 20; TEMP 36.4; O2SAT 93
[2023-09-24] MEDS: 0.9 % SODIUM CHLORIDE 1,000 ML 75 ML IV (06:10)
[2023-09-24 06:40] LABS: WBC Urine 0-2 #/HPF (NONE SEEN)
[2023-09-24 06:41] LABS: Bacteria Urine TRACE #/HPF (NONE SEEN); Cast Seen? NONE SEEN #/LPF (NONE SEEN); Crystals Seen? None Seen #/HPF (None Seen); Mucus Urine NONE SEEN (NONE SEEN); Squamous Epithelial Cell Urine RARE #/LPF (NONE/RARE)
--- NOTE | 2023-09-24 07:00 | XR_ITS ---
The [address] [address] Patient Name: YOSSI OBOTHE MRN: [id number] date: 1945 Sex: M Assigned Patient Location: [place] Current Patient Location: [place] Accession/Order Number: [id number] Exam Date: 09/24/2023 06:00 Report Date: 09/24/2023 12:28 At the request of: TERRA HAMILTON Procedure: XR abdomen 1V KUB HISTORY: Abdominal pain. COMPARISON: None. FINDINGS: Nonobstructed nondilated bowel gas pattern. There are no abnormal radiopaque densities in the abdomen or pelvis. There are no acute bony abnormalities. XR/XR abdomen 1V IMPRESSION: No evidence of obstruction or ileus. Electronically authenticated by: EFRAÍN HERMOSILLO Date: 09/24/2023 12:28
[2023-09-24] MEDS: ISOSORBIDE MONONITRATE 60 MG TAB.ER.24H PO (10:10)
[2023-09-24] MEDS: METOPROLOL SUCCINATE 25 MG TAB.ER.24H 37.5 MG PO (10:10)
--- NOTE | 2023-09-24 13:00 | P.HP_ITS ---
H&P: HPI History of Present Illness Chief complaint: Abdominal pain Narrative: HPI and Hospital Course: 77 y o male presents with poor appetite, abdominal distention, generalized abdominal pain, mild nausea, along with constipation for past 4-5 days. He felt he was backed up and could pass only small quantity of hard stools. He had recent inguinal hernia repair on right side 6 weeks ago. He was evaluated in ED last night and was admitted for observation for possible partial SBO vs ileitis. He had two large bowel movements overnight followed by some diarrhea and reports resolution of his symptoms. He also reports weight loss of about 30 lbs over past 6 months. XR abd in the morning - shows non obs gas pattern but no concern for bowel obs. Patient doing well, with no active symptoms to offer and tolerated oral diet w/o any problem. Stable for d/c. Patient instructed to f/u with PCP and recommended to have Colonoscopy for unexplained weight loss and recurrent constipation. Patient also educated on worrisome signs and symptoms that should prompt him to seek care. Admission Diagnosis Partial small bowel obstruction HTN CAD HLD Insomnia Discharge diagnosis as above Discharge status stable. Review of Systems ROS Status of ROS 10 or more systems reviewed and unremarkable except as noted in history and below PFSH [facility] Medical History (Updated 09/24/23 @ 13:08 by Shaikh Pilar MD) Anxiety ?F41.9 - Anxiety disorder, unspecified (ICD-10) CAD (coronary artery disease) ?I25.10 - Atherosclerotic heart disease of [place] coronary artery without angina pectoris (ICD-10) Chronic GERD ?K21.9 - Gastro-esophageal reflux disease without esophagitis (ICD-10) Femoral hernia ?K41.90 - Unilateral femoral hernia, without obstruction or gangrene, not specified as recurrent (ICD-10) History of asbestosis ?Z87.09 - Personal history of other diseases of the respiratory system (ICD- 10) Hyperlipidemia ?E78.5 - Hyperlipidemia, unspecified (ICD-10) Hypertension ?I10 - Essential (primary) hypertension (ICD-10) Surgical History (Updated 09/24/23 @ 13:06 by Shaikh Pilar MD) H/O right inguinal hernia repair ?Z98.890 - Other specified postprocedural states (ICD-10) ?Z87.19 - Personal history of other diseases of the digestive system (ICD-10) History of lobectomy of lung ?Z90.2 - Acquired absence of lung [part of] (ICD-10) History of open heart surgery ?Z98.890 - Other specified postprocedural states (ICD-10) Family History (Updated 09/24/23 @ 02:06 by Yury Bunch) Brother Family history of cancer Family history of hypertension Social History (Updated 08/21/23 @ 22:50 by Cesilia Giang) Within the past year, how often did you have a drink containing alcohol: 4 or more times a week Within the past year, how many standard drinks containing alcohol did you have on a typical day: 3 or 4 Within the past year, how often did you have six or more drinks on one occasion: never Total score: 2 Score interpretation: A score of 4 or more indicates drinking is likely to affect patient's safety. Smoking status: Former smoker Non-prescribed substance use: denies use Previous occupational history: Retired Highest level of school completed/degree received: Associate degree: occupational, technical, vocational program Are you now , , , , never or living with a partner: In a typical week, how many times do you talk on the telephone with family, friends, or neighbors: 3 or more times per week How often do you get together with friends or relatives: 3 or more times per week How often do you attend scientologist or religion services: never Little interest or pleasure in doing things: not at all Feeling down, depressed, or hopeless: several days Feel stressed/tense/nervous/anxious/difficulty sleeping: rather much Life stressors: other Life stressor details: diagnosed with dementia Due to disability, difficulty making decisions: No Do you think of yourself as: straight/heterosexual Gender Identity: male Meds Home Medications and Allergies Home Medications Medication Instructions Recorded Confirmed Type albuterol sulfate 90 mcg/actuation 2 puff inhalation Q4H PRN 08/21/23 09/24/23 History aerosol inhaler shortness of breath or wheezing atorvastatin 40 mg tablet 40 mg PO BEDTIME 08/21/23 09/24/23 History buspirone 15 mg tablet 15 mg PO TID 08/21/23 09/24/23 History isosorbide mononitrate 60 mg 60 mg PO DAILY 08/21/23 09/24/23 History tablet,extended release 24 hr losartan 25 mg tablet 25 mg PO DAILY 08/21/23 09/24/23 History nitroglycerin 0.4 mg sublingual 0.4 mg sublingual Q5M PRN chest 08/21/23 09/24/23 History tablet pain omeprazole 20 mg capsule,delayed 20 mg PO DAILY 08/21/23 09/24/23 History release zolpidem 10 mg tablet 10 mg PO BEDTIME PRN sleep 08/21/23 09/24/23 History meloxicam 7.5 mg tablet 7.5 mg PO DAILY 09/24/23 09/24/23 History metoprolol succinate 25 mg 37.5 mg PO DAILY 09/24/23 09/24/23 History tablet,extended release 24 hr trospium 20 mg tablet 20 mg PO BEDTIME 09/24/23 09/24/23 History Allergies Allergy/AdvReac Type Severity Reaction Status Date / Time Penicillins Allergy Hives Verified 08/21/23 15:24 Exam Constitutional Vital Signs, click to edit/add: Last Vital Signs Temp 97.6 F 09/24/23 06:00 Pulse 62 09/24/23 06:00 Resp 20 09/24/23 06:00 BP 122/74 09/24/23 06:00 Pulse Ox 93 L 09/24/23 06:00 O2 Del Method Room Air 09/24/23 06:00 Documenting provider has reviewed patient's vital signs: yes Common normals: no apparent distress and oriented x3 General appearance: cooperative [facility] Common normals: normocephalic and head/scalp atraumatic Head and scalp: normocephalic and atraumatic Eye Common normals: conjunctivae normal and no scleral icterus Conjunctiva: conjunctiva(e) normal Respiratory Common normals: normal respiratory effort and clear to auscultation bilaterally Effort & inspection: able to speak in complete sentences Auscultation: clear to auscultation bilaterally Cardio Common normals: regular rate, S1 normal heart sound and S2 normal heart sound Rate: regular rate Heart sounds: S1 normal and S2 normal GI Common normals: Normal to inspection, nondistended, normoactive bowel sounds present, soft to palpation, non-tender and no hepatosplenomegaly Palpation: soft and no hepatosplenomegaly Other: well healed surgical scar from hernia repair. Extremity Common normals: no clubbing, cyanosis or edema Neuro Common normals: oriented x3, moves all extremities and no focal motor deficits Psych Common normals: mental status grossly normal, denies hallucinations, denies homicidal ideation and denies suicidal ideation Results Labs Labs: Short CBC 09/23/23 Range/Units 21:15 WBC 10.5 (4.0-11.0) 10^3/uL Hgb 13.8 L (14.0-18.0) g/dL Hct 44.0 (42.0-54.0) % Plt Count 286 (150-450) 10^3/uL BMP 09/23/23 21:15 Sodium 130 L Potassium 3.8 Chloride 94 L Carbon Dioxide 26.8 BUN 20.0 H Creatinine 1.22 Glucose 138 H Calcium 9.9 Liver Function 09/23/23 Range/Units 21:15 Total Bilirubin 1.1 H (0.2-1.0) mg/dL Direct Bilirubin 0.2 (0.0-0.2) mg/dL AST 28 (15-37) U/L ALT 21 (16-63) U/L Alkaline Phosphatase 79 (46-116) U/L Albumin 3.9 (3.4-5.0) g/dL Urine 09/23/23 Range/Units 21:30 Urine Color Dk. yellow (YELLOW) Urine Clarity Clear (CLEAR) Urine pH 5.0 (5.0-9.0) Ur Specific Van >=1.030 A (1.005-1.025) Urine Protein >=300 A (NEG/TRACE) mg/dL Urine Glucose (UA) Negative (NEGATIVE) mg/dL Assessment and Plan Assessment and Plan (1) Partial small bowel obstruction: (2) Abdominal pain: Qualifiers: Abdominal location: generalized Qualified Code(s): R10.84 - Generalized abdominal pain (3) CAD (coronary artery disease): Qualifiers: Coronary Disease-Associated Artery/Lesion type: [place] artery [place] vs. transplanted heart: [place] heart Associated angina: without angina Qualified Code(s): I25.10 - Atherosclerotic heart disease of [place] coronary artery without angina pectoris (4) Chronic GERD: (5) Hyperlipidemia: Qualifiers: Hyperlipidemia type: unspecified Qualified Code(s): E78.5 - Hyperlipidemia, unspecified (6) Hypertension: Qualifiers: Hypertension type: primary hypertension Qualified Code(s): I10 - Essential (primary) hypertension Plan P/w abdominal pain likely due to ileus vs partial small bowel obstruction. Resolved with conservative measures. Moving bowels and passing gas. Symptoms resolved. Stable for d.c F/u with PCP. Recommend outpatient Colonoscopy.
--- NOTE | 2023-09-26 15:31 | CM.DCFOLLOWU ---
Person spoke with: patient How are you feeling? ok How is your pain? not too bad Did you understand your discharge instructions? yes Do you have any questions about your discharge instructions? no Were you given any prescriptions at discharge? no Were you able to get your prescriptions filled? n/a Do you understand how to take your medications as ordered? yes Do you have any questions about your follow up appointment and do you plan to keep your follow up appointment? Pt. d/s instructions stated to follow up with Dr. Gipson in 7-10 days. Pt. has not made follow up appointment but stated he would as soon as we got off of phone and stated he had physician number in his cell phone. Is there anything else that you would like to discuss? I have a little blood in my catheter but was straining to have a bowel movement earlier. Encouraged patient to discuss that wtih Dr. Gipson's office and pt. states he has a urology follow up appointment this Tuesday. Questions/Comments/Concerns/Other: none.
== END 2023-09-24 14:05 | disposition home or self-care (01) ==
LOC: ER 22:57 → MS 09-24 00:31
PROVIDERS: Admitting Provider Internal Medicine; Emergency Provider Emergency Medicine; PCP Family Medicine; Visit Provider Internal Medicine
DX: K56.600 Partial intestinal obstruction, unspecified as to cause (principal); I10 Essential (primary) hypertension; I25.10 Atherosclerotic heart disease of native coronary artery without angina pectoris; E78.5 Hyperlipidemia, unspecified; G47.00 Insomnia, unspecified; R10.84 Generalized abdominal pain; K21.9 Gastro-esophageal reflux disease without esophagitis; F41.9 Anxiety disorder, unspecified; Z87.09 Personal history of other diseases of the respiratory system; Z79.899 Other long term (current) drug therapy; Z87.891 Personal history of nicotine dependence; Z98.890 Other specified postprocedural states; Z90.2 Acquired absence of lung [part of]
CPT/HCPCS: 36415; 74018; 74177; 80048; 80076; 81001; 82150; 83690; 85025; 87493; 93005; 96374; 96375; 99285; G0378; Q3014; Q9967

== ENCOUNTER 2024-09-02 09:02 | Inpatient (IN) | payer MEDICARE, SELFPAY ==
[2024-09-02] VITALS (84 sets, daily range): BP systolic 90–156; BP diastolic 57–89; PULSE 65–122; TEMP 36.3–37.2; O2SAT 89–100; BMI 22.1; BMI 19.0
--- NOTE | 2024-09-02 09:10 | XR_ITS ---
The [address] [address] Patient Name: YOSSI BOOTHE MRN: [id number] date: 1945 Sex: M Assigned Patient Location: ER Current Patient Location: ER Accession/Order Number: [id number] Exam Date: 09/02/2024 09:25 Report Date: 09/02/2024 09:45 At the request of: SHAYNE INTERIANO Procedure: XR chest 1V EXAM: XR chest 1V INDICATION: shortness of breath. COMPARISON: Chest radiograph 02/12/2023. TECHNIQUE: Single frontal view of the chest FINDINGS: Post CABG. Normal sized cardiac silhouette. Normal pulmonary vasculature. No acute infiltrative process. Stable bilateral calcified pleural plaques with associated pleuroparenchymal thickening. No pleural effusion or pneumothorax. No acute osseous abnormality. Small to moderate-sized hiatal hernia. XR/XR chest 1V IMPRESSION: Stable chest. No acute process. Electronically authenticated by: JORDIN GARCIA Date: 09/02/2024 09:45
--- NOTE | 2024-09-02 09:10 | ECG_ITS ---
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
--- NOTE | 2024-09-02 09:19 | ED_ITS ---
HPI HPI - General Adult General Chief complaint: Weakness Stated complaint: GENERAL WEAKNESS Time Seen by Provider: 09/02/24 09:07 Source: patient Mode of arrival: walk-in Limitations: no limitations History of Present Illness HPI narrative: The patient is coming to the ER with 1 week history of epigastric discomfort and indigestion, the indigestion associated with some black stool that he noticed over the last week the last time he noticed that was yesterday, the patient denies any abdominal pain otherwise he denies any shortness of breath or chest pain. Upon arrival his pulse ox was noted to be 89% but he was not complaining of any shortness of breath The patient denies any cough fever The patient also denies any chest pain at any time except for the indigestion feeling that was in his epigastric area Related Data Home Medications ?Medication ?Instructions ?Recorded ?Confirmed albuterol sulfate 90 mcg/actuation 2 puff inhalation Q4H PRN 08/21/23 09/24/23 aerosol inhaler shortness of breath or wheezing atorvastatin 40 mg tablet 40 mg PO BEDTIME 08/21/23 09/24/23 buspirone 15 mg tablet 15 mg PO TID 08/21/23 09/24/23 isosorbide mononitrate 60 mg 60 mg PO DAILY 08/21/23 09/24/23 tablet,extended release 24 hr losartan 25 mg tablet 25 mg PO DAILY 08/21/23 09/24/23 nitroglycerin 0.4 mg sublingual 0.4 mg sublingual Q5M PRN chest 08/21/23 09/24/23 tablet pain omeprazole 20 mg capsule,delayed 20 mg PO DAILY 08/21/23 09/24/23 release zolpidem 10 mg tablet 10 mg PO BEDTIME PRN sleep 08/21/23 09/24/23 meloxicam 7.5 mg tablet 7.5 mg PO DAILY 09/24/23 09/24/23 metoprolol succinate 25 mg 37.5 mg PO DAILY 09/24/23 09/24/23 tablet,extended release 24 hr trospium 20 mg tablet 20 mg PO BEDTIME 09/24/23 09/24/23 Allergies Allergy/AdvReac Type Severity Reaction Status Date / Time Penicillins Allergy Hives Verified 08/21/23 15:24 Opioid HPI Opioid Management Most Recent Opioid Data: Last Pain Scale 6 08/22/23 09:25 10/02/23 Review of Systems ROS Status of ROS 10 or more systems reviewed and unremark able except as noted in history and below PFSH PFS Medical History (Updated 09/02/24 @ 11:39 by Annette Salinas MD) Anxiety ?F41.9 - Anxiety disorder, unspecified (ICD-10) CAD (coronary artery disease) ?I25.10 - Atherosclerotic heart disease of [place] coronary artery without angina pectoris (ICD-10) Hyperlipidemia ?E78.5 - Hyperlipidemia, unspecified (ICD-10) Chronic GERD ?K21.9 - Gastro-esophageal reflux disease without esophagitis (ICD-10) Hypertension ?I10 - Essential (primary) hypertension (ICD-10) History of asbestosis ?Z87.09 - Personal history of other diseases of the respiratory system (ICD- 10) Femoral hernia ?K41.90 - Unilateral femoral hernia, without obstruction or gangrene, not specified as recurrent (ICD-10) Surgical History (Updated 09/24/23 @ 13:06 by Shaikh Pilar MD) H/O right inguinal hernia repair ?Z98.890 - Other specified postprocedural states (ICD-10) ?Z87.19 - Personal history of other diseases of the digestive system (ICD-10) History of lobectomy of lung ?Z90.2 - Acquired absence of lung [part of] (ICD-10) History of open heart surgery ?Z98.890 - Other specified postprocedural states (ICD-10) Family History (Updated 09/24/23 @ 02:06 by Yury Bunch) Brother Family history of cancer Family history of hypertension Social History (Updated 08/21/23 @ 22:50 by Cesilia Giang) Within the past year, how often did you have a drink containing alcohol: 4 or more times a week Within the past year, how many standard drinks containing alcohol did you have on a typical day: 3 or 4 Within the past year, how often did you have six or more drinks on one occasion: never Total score: 2 Score interpretation: A score of 4 or more indicates drinking is likely to affect patient's safety. Smoking status: Former smoker Non-prescribed substance use: denies use Previous occupational history: Retired Highest level of school completed/degree received: Associate degree: occupational, technical, vocational program Are you now , , , , never or living with a partner: In a typical week, how many times do you talk on the telephone with family, friends, or neighbors: 3 or more times per week How often do you get together with friends or relatives: 3 or more times per week How often do you attend scientology or buddhism services: never Little interest or pleasure in doing things: not at all Feeling down, depressed, or hopeless: not at all Feel stressed/tense/nervous/anxious/difficulty sleeping: rather much Life stressors: other Life stressor details: diagnosed with dementia Due to disability, difficulty making decisions: No Do you think of yourself as: straight/heterosexual Gender Identity: male Exam Narrative Exam Narrative: Nurses notes and vital signs reviewed and patient is not hypoxic. General: Well-appearing and in no apparent distress. Skin: Warm, dry, no pallor noted. No rash. Head: Normocephalic, atraumatic. Neck: Supple, non-tender. Eye: Pupils are equal, round and EOMI. No scleral icterus. Ears, Nose, Mouth, and Throat: TM are clear, no nasal mucosal hypertrophy. Oral mucosa is moist, no posterior oropharynx erythema, uvula is mid-line Cardiovascular: Regular Rate and Rhythm without murmur, gallop or rub. Respiratory: No accessory muscle use or respiratory distress. Lungs are clear to auscultation, no wheezing, rales or rhonchi Chest Wall: no tenderness Back: No midline thoracic or lumbar vertebral tenderness. No CVA tenderness Musculoskeletal: normal ROM, no calf or popliteal tenderness, no lower extremit y edema/swelling GI: Abdomen is soft, non-distended. Normal bowel sounds. No masses appreciated. No tenderness to palpation. No rebound, guarding, or rigidity noted. Neurological: A&O x4. No cranial nerve dysfunction observed. No truncal ataxia. Moves all extremities. Sensation intact. Psychiatric: Cooperative and interactive. Normal mood and affect. Constitutional Vital Signs, click to edit/add: Last Vital Signs Temp 97.4 F L 09/02/24 09:05 Pulse 101 H 09/02/24 10:40 Resp 22 H 09/02/24 10:40 BP 156/89 H 09/02/24 09:06 Pulse Ox 94 L 09/02/24 10:40 O2 Del Method Room Air 10/13/24 09:05 O2 Flow Rate 2 09/02/24 09:05 Course Vital Signs Vital signs: Vital Signs Temperature 97.4 F L 09/02/24 09:05 Pulse Rate 122 H 09/02/24 09:05 Respiratory Rate 18 09/02/24 09:05 Blood Pressure 156/89 H 09/02/24 09:05 Pulse Oximetry 89 L 09/02/24 09:05 Oxygen Delivery Method Room Air 09/02/24 09:05 Oxygen Delivery Flow Rate 2 09/02/24 09:05 Temperature 97.4 F L 09/02/24 09:05 Pulse Rate 101 H 09/02/24 10:40 Respiratory Rate 22 H 09/02/24 10:40 Blood Pressure 156/89 H 09/02/24 09:06 Pulse Oximetry 94 L 09/02/24 10:40 Oxygen Delivery Method Room Air 09/02/24 09:05 Oxygen Delivery Flow Rate 2 09/02/24 09:05 Medical Decision Making MDM Narrative Medical decision making narrative: The patient EKG showing sinus tachycardia with a heart rate of 104 there was nonspecific changes The patient rectal examination showed no active bleeding he did have a small hemorrhoid and his occult blood was negative The patient CBC shows a hemoglobin level of 12 his chemistry showed no acute significant pathology and his troponin was found to be elevated at 450 It was noted that the patient does not have any pain his last time he had any discomfort or just indigestion was yesterday The patient was started on heparin in addition to aspirin in the ER And I did discuss the case with ----and the patient right now we will continue heparin drip he will have a stress test and depending on that he might need to be transferred The patient does not have any active pain at the moment and the case discussed with and he agreed with above-mentioned plan I did discuss with the patient multiple time about the importance to be admitted he just wanted to leave and I did convince him to start the heparin and make sure that he take care of himself so that he can take care of his I did explain to him multiple times that is life-threatening and for the moment the patient is agreeable to be admitted Lab Data Labs: Lab Results 09/02/24 09/02/24 09/02/24 Range/Units 09:15 10:01 10:30 WBC 8.2 (4.0-11.0) 10^3/uL RBC 4.94 (4.70-6.10) 10^6/uL Hgb 12.9 L (14.0-18.0) g/dL Hct 41.5 L (42.0-54.0) % MCV 84.0 (80.0-94.0) fL MCH 26.1 (25.9-34.0) pg MCHC 31.1 (29.9-35.2) g/dL RDW 15.4 H (11.0-15.0) % Plt Count 281 (150-450) 10^3/uL MPV 9.2 L (9.5-13.5) fL Neut % (Auto) 73.3 (43.0-75.0) % Lymph % (Auto) 12.8 L (20.5-60.0) % Bell % (Auto) 10.6 (1.7-12.0) % Eos % (Auto) 2.6 (0.9-7.0) % Baso % (Auto) 0.6 (0.2-2.0) % Neut # (Auto) 6.0 (1.4-6.5) 10^3/uL Lymph # (Auto) 1.1 L (1.2-3.8) 10^3/uL Bell # (Auto) 0.9 H (0.3-0.8) 10^3/uL Eos # (Auto) 0.2 (0.0-0.7) 10^3/uL Baso # (Auto) 0.1 (0.0-0.1) 10^3/uL Abs Immat Gran (auto) 0.01 (0.00-0.03) 10^3/uL Imm/Tot Granulo (auto) 0.1 (0.0-0.5) % PT 11.1 (9.0-11.6) sec INR 1.05 Sodium 143 (136-145) mmol/L Potassium 3.8 (3.5-5.1) mmol/L Chloride 103 (98-107) mmol/L Carbon Dioxide 32.0 (21.0-32.0) mmol/L Anion Gap 11.8 BUN 15.0 (7.0-18.0) mg/dL Creatinine 1.11 (0.70-1.30) mg/dL Est GFR ( Amer) >60 (>=60 mL/min/1.73m^2) Est GFR (Non-Af Amer) >60 (>=60 mL/min/1.73m^2) BUN/Creatinine Ratio 13.5 Glucose 149 H (74-106) mg/dL Lactate 1.3 (0.4-2.0) mmol/L Calcium 8.9 (8.5-10.1) mg/dL Total Bilirubin 0.6 (0.2-1.0) mg/dL AST 21 (15-37) U/L ALT 24 (16-63) U/L Alkaline Phosphatase 77 (46-116) U/L Troponin I High Sens 456.8 H* 507.4 H* (4.0-76.1) pg/mL Total Protein 7.0 (6.4-8.2) g/dL Albumin 3.2 L (3.4-5.0) g/dL Globulin 3.8 g/dL Albumin/Globulin Ratio 0.8 Stool Occult Blood Negative Discharge Plan Discharge Chief Complaint: Weakness Clinical Impression: Non-ST elevation ME (NSTEMI) Patient Disposition: Admitted As Inpatient Time of Disposition Decision: 11:38
[2024-09-02 09:23] LABS: Basophils Absolute Auto 0.1 10^3/uL (0.0-0.1); Basophils Percent Auto 0.6 % (0.2-2.0); Eosinophils Absolute Auto 0.2 10^3/uL (0.0-0.7); Eosinophils Percent Auto 2.6 % (0.9-7.0); Hematocrit 41.5 % (42.0-54.0); Hemoglobin 12.9 g/dL (14.0-18.0); Immature Granulocytes Abs Auto 0.01 10^3/uL (0.00-0.03); Immature Granulocytes Pct Auto 0.1 % (0.0-0.5); Lymphocytes Absolute Auto 1.1 10^3/uL (1.2-3.8); Lymphocytes Percent Auto 12.8 % (20.5-60.0); Mean Corpuscular HGB Conc 31.1 g/dL (29.9-35.2); Mean Corpuscular Hemoglobin 26.1 pg (25.9-34.0); Mean Platelet Volume 9.2 fL (9.5-13.5); Monocytes Absolute Auto 0.9 10^3/uL (0.3-0.8); Monocytes Percent Auto 10.6 % (1.7-12.0); Neutrophils Percent Auto 73.3 % (43.0-75.0); Platelet Count 281 10^3/uL (150-450); Red Blood Count 4.94 10^6/uL (4.70-6.10); Red Cell Distribution Width 15.4 % (11.0-15.0); White Blood Count 8.2 10^3/uL (4.0-11.0)
[2024-09-02 09:37] LABS: INR 1.05; Prothrombin Time 11.1 sec (9.0-11.6)
[2024-09-02] MEDS: 0.9 % SODIUM CHLORIDE 1,000 ML 500 ML IV (09:40)
[2024-09-02 09:41] LABS: Lactate/Lactic Acid 1.3 mmol/L (0.4-2.0)
[2024-09-02 09:42] LABS: Alanine Aminotransferase 24 U/L (16-63); Albumin Globulin Ratio 0.8; Albumin Level 3.2 g/dL (3.4-5.0); Alkaline Phosphatase 77 U/L (46-116); Anion Gap 11.8; Aspartate Amino Transferase 21 U/L (15-37); BUN Creatinine Ratio 13.5; Bilirubin Total 0.6 mg/dL (0.2-1.0); Calcium 8.9 mg/dL (8.5-10.1); Chloride 103 mmol/L (98-107); Estimated GFR (African America >60 (>=60 mL/min/1.73m^2); Estimated GFR (Non-African Ame >60 (>=60 mL/min/1.73m^2); Globulin 3.8 g/dL; Glucose 149 mg/dL (74-106); Potassium 3.8 mmol/L (3.5-5.1); Sodium 143 mmol/L (136-145)
[2024-09-02] MEDS: PANTOPRAZOLE SODIUM 40 MG VIAL 80 MG IV (09:42)
[2024-09-02 09:45] LABS: Troponin I High Sensitivity 456.8 pg/mL (4.0-76.1)
[2024-09-02] MEDS: PANTOPRAZOLE SODIUM 40 MG VIAL IV (09:54)
[2024-09-02 10:24] LABS: Internal Control Within Normal Limits; Occult Blood Negative
[2024-09-02 11:18] LABS: Troponin I High Sensitivity 507.4 pg/mL (4.0-76.1)
[2024-09-02] MEDS: HEPARIN SODIUM,PORCINE/D5W 25,000 UNIT/500 ML IV.SOLN 18 UNIT IV (11:45)
[2024-09-02] MEDS: HEPARIN SODIUM (PORCINE) 5,000 UNIT/ML VIAL 2900 UNIT IV (11:45)
[2024-09-02] MEDS: ASPIRIN 81 MG TAB.CHEW 324 MG PO (11:45)
[2024-09-02 12:00] LABS: Partial Thromboplastin Time 30.3 sec (22.3-36.2)
--- NOTE | 2024-09-02 13:55 | CA_ITS ---
Patient Name: YOSSI BOOTHE MR#: [id number] : 1945 Exam Date: 09/03/2024 Ordering Doctor: DR Scott Cat . ECHOCARDIOGRAM REPORT PROCEDURE: CA ECHO DOPPLER COMPLETE INDICATIONS: Dyspnea, Elevated traponin COMPARISON: None. DESCRIPTION: COMPLETE ECHOCARDIOGRAM Real-time transthoracic echocardiography with 2D, M-mode, spectral and color flow Doppler performed. QUALITY: Technical quality was good. LEFT VENTRICLE: Normal chamber size. Normal left ventricular wall thickness. There is severe hypokinesis to akinesis of the basal and mid inferior wall and inferior septum. Global systolic function is mildly to moderately reduced. LV EF: Mildly to moderately reduced left ventricular ejection fraction, (40%). DIASTOLIC: ATRIAL SEPTUM: LEFT ATRIUM: Moderate dilatation. RIGHT ATRIUM: Mild dilatation. RIGHT VENTRICLE: Normal chamber size. Normal right ventricular systolic function. No right ventricular outflow obstruction. TRICUSPID VALVE: Normal mobility and thickness. No stenosis with trivial regurgitation. No evidence of pulmonary hypertension. RVSP 29 mmHg MITRAL VALVE: Mildly thickened with normal mobility. No evidence of mitral valve stenosis. Mild mitral annular calcification. Mild to moderate mitral regurgitation. AORTIC VALVE: Normal trileaflet appearance. Mildly calcified aortic valve. Normal leaflet mobility. No evidence of aortic valve stenosis. No aortic regurgitation. AORTIC ROOT: Normal diameter and appearance. PULMONIC VALVE: Normal thickness and mobility. No stenosis. Trivial regurgitation. PERICARDIUM: No evidence of pericardial effusion. IVC: Collapses with inspirations. Normal size. PLEURA: CONCLUSION: 1. Left ventricular systolic function is mildly to moderately reduced with segmental wall motion abnormalities involving the inferior wall and inferior septum. LVEF is estimated at 40%. 2. Normal right ventricular size and systolic function. 3. Mild to moderate biatrial dilatation. 4. Mild to moderate mitral regurgitation. 5. Normal right-sided pressures. Adult Echocardiography Procedure Report Left Ventricle LVEDD (3.7 - 5.6 cm): 5.32 cm LVESD (2.2 - 4.0 cm): 4.58 cm LVIVS thickness (0.6 - 1.2 cm): 0.83 cm LVPW thickness (0.5 - 1.0 cm): 0.95 cm LVOT Max Gradient: 2.84 mm[Hg] LVOT Area (cm2): 0.84 m/s Peak Velocity (LVOT): 0.84 m/s Mean Velocity (LVOT): 0.60 m/s LVOT Diameter 1.97 cm Left Ventricular Ejection Fraction: 40 % Left Atrium LA Volume Index (2D A2C): 44.96 ml/m2 Left Atrium Systolic Dimension: 3.72 cm Mitral Valve MV E to A Ratio: 0.87 Mitral Valve A-Wave Peak Velocity: 0.85 m/s Mitral Valve E-Wave Peak Velocity: 0.74 m/s Right Ventricle RV Internal Diastolic Dimension: 3.22 cm Aorta AO Root Diam: 3.68 cm Ascending Ao Diam: 2.51 cm Aortic Valve AoV Area (Peak Sadiq): 2.11 cm2, 2.11 cm2 AoV Area (VTI): 1.83 cm2, 1.83 cm2 Peak Velocity(Antegrade Flow): 1.22 m/s Peak Gradient(Antegrade Flow): 5.93 mm[Hg] Mean Velocity(Antegrade Flow): 0.86 m/s Mean Gradient(Antegrade Flow): 3.38 mm[Hg] Velocity Time Integral: 30.04 cm Tricuspid Valve Peak Velocity (Regurgitant Flow): 2.15 m/s, 2.54 m/s Pulmonic Valve Mean Gradient: 1.07 mm[Hg] Mean Velocity: 0.48 m/s Peak Velocity: 0.77 m/s, 0.83 m/s Peak Gradient: 2.40 mm[Hg], 2.72 mm[Hg] Right Atrium Right Atrium Systolic Pressure: 49.02 ml, 49.02 ml Dictated by: Carol Andrade M.D. on 09/03/2024 at 17:57 Approved by: Carlo Andrade M.D. on 09/03/2024 at 18:02
--- NOTE | 2024-09-02 14:05 | P.HP_ITS ---
HPI H&P: HPI History of Present Illness Chief complaint: GENERAL WEAKNESS, NSTEMI Narrative: With a history of known coronary artery disease presented to the emergency room with epigastric discomfort, he had been taking some Pepto-Bismol, over the last 24 hours which did not relieve his symptoms. He also talked about black tarry stools which she states did start before taking the Pepto-Bismol. In ER he is Hemoccult negative. ER evaluation showed EKG with some inferior lateral ST segment depression, troponin was positive, elevated on the second but not significant change from the first, case was discussed with [facility] and the recommendation was for NSTEMI to place him on heparin drip and look at possible further intervention tomorrow depending on his symptoms and results of echocardiogram When I saw patient up in the intensive care unit, he was having no chest pain, no dyspnea with conversation, more anxiety lately especially his with Alzheimer's needed to be placed in a snf while he is here in the hospital. Opioid HPI Opioid Management Most Recent Pain and Opioid Data: Last Pain Scale 6 08/22/23 09:25 08/22/23 Last Pain Assessment 09/02/24 17:58 Last ORT Total Score 0 09/02/24 13:25 09/02/24 Last ORT Risk Category Low Risk 09/02/24 13:25 09/02/24 Review of Systems ROS Status of ROS 10 or more systems reviewed and unremark able except as noted in history and below [facility] Medical History (Updated 09/02/24 @ 18:06 by Scott Cat MD) Anxiety ?F41.9 - Anxiety disorder, unspecified (ICD-10) CAD (coronary artery disease) ?I25.10 - Atherosclerotic heart disease of [place] coronary artery without angina pectoris (ICD-10) Hyperlipidemia ?E78.5 - Hyperlipidemia, unspecified (ICD-10) Chronic GERD ?K21.9 - Gastro-esophageal reflux disease without esophagitis (ICD-10) Hypertension ?I10 - Essential (primary) hypertension (ICD-10) History of asbestosis ?Z87.09 - Personal history of other diseases of the respiratory system (ICD- 10) Femoral hernia ?K41.90 - Unilateral femoral hernia, without obstruction or gangrene, not specified as recurrent (ICD-10) Surgical History (Updated 09/02/24 @ 17:59 by Scott Cat MD) H/O right inguinal hernia repair ?Z98.890 - Other specified postprocedural states (ICD-10) ?Z87.19 - Personal history of other diseases of the digestive system (ICD-10) History of lobectomy of lung ?Z90.2 - Acquired absence of lung [part of] (ICD-10) History of open heart surgery ?Z98.890 - Other specified postprocedural states (ICD-10) Family History (Updated 09/24/23 @ 02:06 by Yury Bunch) Brother Family history of cancer Family history of hypertension Social History (Updated 08/21/23 @ 22:50 by Cesilia Giang) Within the past year, how often did you have a drink containing alcohol: 4 or more times a week Within the past year, how many standard drinks containing alcohol did you have on a typical day: 3 or 4 Within the past year, how often did you have six or more drinks on one occasion: never Total score: 2 Score interpretation: A score of 4 or more indicates drinking is likely to affect patient's safety. Smoking status: Former smoker Non-prescribed substance use: denies use Previous occupational history: Retired Highest level of school completed/degree received: high school graduate Are you now , , , , never or living with a partner: In a typical week, how many times do you talk on the telephone with family, friends, or neighbors: 3 or more times per week How often do you get together with friends or relatives: 3 or more times per we ek How often do you attend amish or catholic services: never Little interest or pleasure in doing things: not at all Feeling down, depressed, or hopeless: not at all Feel stressed/tense/nervous/anxious/difficulty sleeping: rather much Life stressors: other Life stressor details: diagnosed with dementia Due to disability, difficulty making decisions: No Do you think of yourself as: straight/heterosexual Gender Identity: male Meds Home Medications and Allergies Home Medications ?Medication ?Instructions ?Recorded ?Confirmed ?Type atorvastatin 40 mg tablet 40 mg PO BEDTIME 08/21/23 09/02/24 History isosorbide mononitrate 60 mg 60 mg PO DAILY 08/21/23 09/02/24 History tablet,extended release 24 hr losartan 25 mg tablet 25 mg PO DAILY 08/21/23 09/02/24 History nitroglycerin 0.4 mg sublingual 0.4 mg sublingual Q5M PRN chest 08/21/23 09/02/24 History tablet pain metoprolol succinate 25 mg 37.5 mg PO DAILY 09/24/23 09/02/24 History tablet,extended release 24 hr mirtazapine 15 mg tablet 15 mg PO .qhs 09/02/24 09/02/24 History tamsulosin 0.4 mg capsule 0.4 mg PO .qd 09/02/24 09/02/24 History venlafaxine 150 mg 150 mg PO .qd 09/02/24 09/02/24 History capsule,extended release 24 hr Allergies Allergy/AdvReac Type Severity Reaction Status Date / Time Penicillins Allergy Hives Verified 09/02/24 13:13 metformin AdvReac Intermediate Abdominal Verified 09/02/24 13:13 Pain Exam Constitutional Vital Signs, click to edit/add: Last Vital Signs Temp 97.4 F L 09/02/24 09:05 Pulse 91 H 09/02/24 13:25 Resp 18 09/02/24 13:25 BP 156/89 H 09/02/24 09:06 Pulse Ox 95 09/02/24 11:50 O2 Del Method Room Air 09/02/24 09:05 O2 Flow Rate 2 09/02/24 09:05 Documenting provider has reviewed patient's vital signs: yes Common normals: no apparent distress [facility] Common normals: head/scalp atraumatic Chest Common normals: inspection of chest normal and palpation of chest normal Respiratory Common normals: normal respiratory effort, no retractions and clear to auscultation bilaterally Auscultation: no rales Cardio Common normals: regular rate, regular rhythm and no murmurs GI Common normals: Normal to inspection, nondistended, normoactive bowel sounds present Extremity Common normals: normal to inspection, full ROM and no clubbing, cyanosis or edema Results Labs Labs: Short CBC 09/02/24 Range/Units 09:15 WBC 8.2 (4.0-11.0) 10^3/uL Hgb 12.9 L (14.0-18.0) g/dL Hct 41.5 L (42.0-54.0) % Plt Count 281 (150-450) 10^3/uL BMP 09/02/24 09:15 Sodium 143 Potassium 3.8 Chloride 103 Carbon Dioxide 32.0 BUN 15.0 Creatinine 1.11 Glucose 149 H Calcium 8.9 Liver Function 09/02/24 Range/Units 09:15 Total Bilirubin 0.6 (0.2-1.0) mg/dL AST 21 (15-37) U/L ALT 24 (16-63) U/L Alkaline Phosphatase 77 (46-116) U/L Albumin 3.2 L (3.4-5.0) g/dL Assessment and Plan Assessment and Plan (1) Non-ST elevation [place] (NSTEMI): (2) Anxiety: (3) CAD (coronary artery disease): Qualifiers: Associated angina: without angina Coronary Disease-Associated Artery/Lesion type: [place] artery [place] vs. transplanted heart: [place] heart Qualified Code(s): I25.10 - Atherosclerotic heart disease of [place] coronary artery without angina pectoris (4) Hyperlipidemia: Qualifiers: Hyperlipidemia type: unspecified Qualified Code(s): E78.5 - Hyperlipidemia, unspecified (5) Chronic GERD: (6) Hypertension: Qualifiers: Hypertension type: primary hypertension Qualified Code(s): I10 - Essential (primary) hypertension (7) History of asbestosis: (8) Status post four vessel coronary artery bypass: (9) Recurrent UTI: (10) Anemia: (11) Respiratory distress: (12) Tachycardia: (13) Elevated troponin I level: (14) BPH (benign prostatic hyperplasia): Plan Admission findings: Sinus tachycardia, respiratory distress, uncontrolled hypertension, elevated high-sensitivity troponin secondary to acute NSTEMI with inferior lateral ischemia. NSTEMI-no ST elevation but definite inferior lateral ST segment depression. Could not find old one to compare to. Will look in old system, echocardiogram in a.m., maintain patient on a heparin drip, Nitropaste instead of his oral nitroglycerin and increase his beta-jamey to metoprolol 50 mg p.o. twice daily. Check echocardiogram in a.m. and discussed case with cardiology for possible transfer for cardiac catheterization. Fourth troponin finally decreasing Tachycardia secondary to his initial presentation with the acute NSTEMI, better with beta-jamey dosage Respiratory distress with hypoxia-O2 sat of 89% on room air, placed on 2 L and after a period of time only came up to 91% so relative hypoxia.-better with control of blood pressure and resolution of his chest pain Uncontrolled hypertension-improved with topical nitrates and the increased dose of metoprolol History of recurrent UTIs-check urinalysis GERD-patient describes black stools but is Hemoccult negative, will check a CBC, started patient on IV Protonix Hyperglycemia on admission-monitor daily Admission findings: Acute NSTEMI, placed on nitro paste, beta-jamey, heparin drip protocol, medically necessary treatment will span 2 midnights. Inpatient status.
[2024-09-02 14:50] LABS: Troponin I High Sensitivity 592.2 pg/mL (4.0-76.1)
[2024-09-02] MEDS: NITROGLYCERIN 2% 1 GRAM PACKET 0.5 GM TD (15:23)
[2024-09-02] MEDS: METOPROLOL TARTRATE 25 MG TABLET PO (16:43)
[2024-09-02 17:37] LABS: Troponin I High Sensitivity 560.2 pg/mL (4.0-76.1)
[2024-09-02 18:12] LABS: Bilirubin Urine NEGATIVE (NEGATIVE); Blood Urine NEGATIVE (NEGATIVE); Clarity Urine CLEAR (CLEAR); Color Urine LT. YELLOW (YELLOW); Glucose Urine UA 100 mg/dL (NEGATIVE); Ketones Urine NEGATIVE (NEGATIVE); Leukocyte Esterase Urine NEGATIVE (NEGATIVE); Nitrite Urine NEGATIVE (NEGATIVE); Protein Urine NEGATIVE (NEG/TRACE); Specific Gravity Urine 1.015 (1.005-1.025); Urobilinogen Urine 0.2 EU/dL (0.2-1.0)
[2024-09-02 18:20] LABS: Bacteria Urine NONE SEEN #/HPF (NONE SEEN); Crystals Seen? None Seen #/HPF (None Seen); Mucus Urine NONE SEEN (NONE SEEN); RBC Urine 0-2 #/HPF (0-2); Squamous Epithelial Cell Urine RARE #/LPF (NONE/RARE); WBC Urine 0-2 #/HPF (NONE SEEN)
[2024-09-02 18:21] LABS: Cast Seen? NONE SEEN #/LPF (NONE SEEN)
[2024-09-02 18:22] LABS: PTT Heparin Monitor 78.6 sec (48.2-68.6)
[2024-09-02] MEDS: ATORVASTATIN CALCIUM 40 MG TABLET PO (21:05)
[2024-09-02] MEDS: MIRTAZAPINE 15 MG TABLET PO (21:05)
[2024-09-03] VITALS (33 sets, daily range): BP systolic 159; BP diastolic 83–90; PULSE 53–101; TEMP 36.6–37.1; O2SAT 90–96
[2024-09-03 00:48] LABS: PTT Heparin Monitor 109.6 sec (48.2-68.6)
[2024-09-03 05:42] LABS: Basophils Percent Auto 0.6 % (0.2-2.0); Eosinophils Absolute Auto 0.3 10^3/uL (0.0-0.7); Eosinophils Percent Auto 4.3 % (0.9-7.0); Hematocrit 37.6 % (42.0-54.0); Hemoglobin 11.7 g/dL (14.0-18.0); Immature Granulocytes Abs Auto 0.02 10^3/uL (0.00-0.03); Immature Granulocytes Pct Auto 0.3 % (0.0-0.5); Lymphocytes Absolute Auto 1.1 10^3/uL (1.2-3.8); Lymphocytes Percent Auto 16.4 % (20.5-60.0); Mean Corpuscular HGB Conc 31.1 g/dL (29.9-35.2); Mean Corpuscular Hemoglobin 26.1 pg (25.9-34.0); Mean Corpuscular Volume 83.9 fL (80.0-94.0); Mean Platelet Volume 9.2 fL (9.5-13.5); Monocytes Absolute Auto 0.8 10^3/uL (0.3-0.8); Monocytes Percent Auto 12.6 % (1.7-12.0); Neutrophils Absolute Auto 4.3 10^3/uL (1.4-6.5); Neutrophils Percent Auto 65.8 % (43.0-75.0); Platelet Count 230 10^3/uL (150-450); Red Blood Count 4.48 10^6/uL (4.70-6.10); Red Cell Distribution Width 15.4 % (11.0-15.0); White Blood Count 6.6 10^3/uL (4.0-11.0)
--- NOTE | 2024-09-03 06:00 | ECG_ITS ---
[facility] Test Date: 2024-09-03 Pat Name: YOSSI BOOTHE Department: Room: [facility] Gender: Male [employer]: : 1945 Requested By: SAAD NOGUEIRA Order Number: [id number] Reading MD: SAAD NOGUEIRA Measurements Intervals [place] Rate: 89 P: 47 DC: 182 QRS: 64 QRSD: 100 T: 24 QT: 358 QTc: 404 Interpretive Statements 1100 Sinus rhythm [address] depression - inf- lateral ischemia [address] & Twave abnormality 9150 abnormal ECG Compared to ECG 09/02/2024 09:10:23 Sinus tachycardia no longer present Possible ischemia no longer present ST (T wave) deviation still present Electronically Signed On 09-04-2024 5:05:11 EDT by SAAD NOGUEIRA
[2024-09-03 06:03] LABS: Anion Gap 7.3; BUN Creatinine Ratio 13.4; Calcium 8.9 mg/dL (8.5-10.1); Carbon Dioxide 33.1 mmol/L (21.0-32.0); Chloride 106 mmol/L (98-107); Estimated GFR (African America >60 (>=60 mL/min/1.73m^2); Estimated GFR (Non-African Ame >60 (>=60 mL/min/1.73m^2); Glucose 125 mg/dL (74-106); Magnesium 2.1 mg/dL (1.8-2.4); Potassium 4.4 mmol/L (3.5-5.1); Sodium 142 mmol/L (136-145)
[2024-09-03 06:11] LABS: PTT Heparin Monitor 91.8 sec (48.2-68.6)
--- NOTE | 2024-09-03 08:39 | P.DS_ITS ---
DS: Providers Provider Date of admission: 09/02/24 12:35 Primary care physician: JADON RAY Consults: 09/02/24 Consult to Dietitian Routine Reason for consultation: Weight loss Has provider been notified: Yes 09/02/24 13:51 Consult to Pharmacy Routine Consulting Provider: Reason for consultation: Please [place] me when Med Rec is Updated Has provider been notified: No Occupational Therapy Eval and Treat Routine Reason for consultation: Only if needed for Rehab Has provider been notified: No Physical Therapy Eval and Treat Routine Reason for consultation: Eval and Treat Has provider been notified: No 09/02/24 13:55 Consult to Cardiology Routine Reason for consultation: NSTEMI Has provider been notified: No DS: Diagnosis Discharge Diagnosis (1) Non-ST elevation [place] (NSTEMI): (2) Anxiety: (3) CAD (coronary artery disease): Qualifiers: Associated angina: without angina Coronary Disease-Associated Artery/Lesion type: [place] artery [place] vs. transplanted heart: [place] heart Qualified Code(s): I25.10 - Atherosclerotic heart disease of [place] coronary artery without angina pectoris (4) Hyperlipidemia: Qualifiers: Hyperlipidemia type: unspecified Qualified Code(s): E78.5 - Hyperlipidemia, unspecified (5) Chronic GERD: (6) Hypertension: Qualifiers: Hypertension type: primary hypertension Qualified Code(s): I10 - Essential (primary) hypertension (7) History of asbestosis: (8) Status post four vessel coronary artery bypass: (9) Recurrent UTI: (10) Anemia: (11) Respiratory distress: (12) Tachycardia: (13) Elevated troponin I level: (14) BPH (benign prostatic hyperplasia): Plan Admission findings: Sinus tachycardia, respiratory distress, uncontrolled hy pertension, elevated high-sensitivity troponin secondary to acute NSTEMI with inferior lateral ischemia. NSTEMI-no ST elevation but definite inferior lateral ST segment depression. Could not find old one to compare to. Will look in old system, echocardiogram in a.m., maintain patient on a heparin drip, Nitropaste instead of his oral nitroglycerin and increase his beta-jamey to metoprolol 50 mg p.o. twice daily. Check echocardiogram in a.m. and discussed case with cardiology for possible transfer for cardiac catheterization. Fourth troponin finally decreasing Tachycardia secondary to his initial presentation with the acute NSTEMI, better with beta-jamey dosage Respiratory distress with hypoxia-O2 sat of 89% on room air, placed on 2 L and after a period of time only came up to 91% so relative hypoxia.-better with control of blood pressure and resolution of his chest pain Uncontrolled hypertension-improved with topical nitrates and the increased dose of metoprolol-improving at discharge History of recurrent UTIs-check urinalysis GERD-patient describes black stools but is Hemoccult negative, will check a CBC, started patient on IV Protonix-heartburn symptoms resolved at discharge Hyperglycemia on admission-improving at the time of discharge Admission findings: Acute NSTEMI, placed on nitro paste, beta-jamey, heparin drip protocol, medically necessary treatment will span 2 midnights. Inpatient status. ? DS: Summary Hospital Course Hospital Course: Patient presented to the emergency room with increasing heartburn. Symptoms not improving over the 24 hours prior to admission. In ER workup showed significantly elevated troponin. Repeat was higher. Patient was admitted after being placed on a heparin drip for acute NSTEMI with inferior lateral ST segment depression. He was maintained on heparin, troponin is improving, symptoms are still stayed resolved with the addition of nitrates and increase beta-jamey. Blood pressure much improved as well. Case discussed with [facility] cardiology who agreed to accept patient in transfer for cardiac catheterization. Patient does have a history of coronary artery disease 22 years ago bypass. 4 vessels. He will maintain on heparin drip, transfer to [facility] for cardiac catheterization. Status at Discharge Overall status at discharge: patient is not back to baseline Time Spent with Patient Time attestation: Total time spent providing and/or coordinating discharge services: Time spent: greater than 30 minutes Exam Constitutional Vital Signs, click to edit/add: Last Vital Signs Temp 97.8 F 09/03/24 07:50 Pulse 66 09/03/24 08:30 Resp 18 09/03/24 08:30 BP 159/90 H 09/03/24 07:26 Pulse Ox 96 09/03/24 07:50 O2 Del Method Room Air 09/03/24 05:44 O2 Flow Rate 2 09/02/24 09:05 Documenting provider has reviewed patient's vital signs: yes Common normals: no apparent distress HENMT Common normals: head/scalp atraumatic Chest Common normals: inspection of chest normal and palpation of chest normal Respiratory Common normals: normal respiratory effort, no retractions and clear to auscultation bilaterally Auscultation: no rales Cardio Common normals: regular rate, regular rhythm and no murmurs GI Common normals: Normal to inspection, nondistended, normoactive bowel sounds present Extremity Common normals: normal to inspection, full ROM and no clubbing, cyanosis or edema DS: Data Data Completed and Pending Labs on day of discharge: Labs from last 24 hours 09/03/24 09/03/24 09/02/24 05:19 00:00 18:00 WBC 6.6 RBC 4.48 L Hgb 11.7 L Hct 37.6 L MCV 83.9 MCH 26.1 MCHC 31.1 RDW 15.4 H Plt Count 230 MPV 9.2 L Neut % (Auto) 65.8 Lymph % (Auto) 16.4 L [place] % (Auto) 12.6 H Eos % (Auto) 4.3 Baso % (Auto) 0.6 Neut # (Auto) 4.3 Lymph # (Auto) 1.1 L [place] # (Auto) 0.8 Eos # (Auto) 0.3 Baso # (Auto) 0.0 Abs Immat Gran (auto) 0.02 Imm/Tot Granulo (auto) 0.3 PT INR APTT PTT (Heparin Absorb) 91.8 H* 109.6 H* Sodium 142 Potassium 4.4 Chloride 106 Carbon Dioxide 33.1 H Anion Gap 7.3 BUN 13.0 Creatinine 0.97 Est GFR ( Amer) >60 Est GFR (Non-Af Amer) >60 BUN/Creatinine Ratio 13.4 Glucose 125 H Lactate Calcium 8.9 Magnesium 2.1 Total Bilirubin AST ALT Alkaline Phosphatase Troponin I High Sens 322.0 H* NT-Pro-B Natriuret Pep 752.0 Total Protein Albumin Globulin Albumin/Globulin Ratio Urine Color Lt. yellow Urine Clarity Clear Urine pH 6.0 Ur Specific [place] 1.015 Urine Protein Negative Urine Glucose (UA) 100 A Urine Ketones Negative Urine Occult Blood Negative Urine Nitrite Negative Urine Bilirubin Negative Urine Urobilinogen 0.2 Ur Leukocyte Esterase Negative Urine RBC 0-2 Urine WBC 0-2 A Ur Squamous Epith Cells Rare Urine Crystals None seen Urine Bacteria None seen Urine Casts None seen Urine Mucus None seen Stool Occult Blood Blood Type Antibody Screen 09/02/24 09/02/24 09/02/24 17:50 17:07 14:08 WBC RBC Hgb Hct MCV MCH MCHC RDW Plt Count MPV Neut % (Auto) Lymph % (Auto) [place] % (Auto) Eos % (Auto) Baso % (Auto) Neut # (Auto) Lymph # (Auto) [place] # (Auto) Eos # (Auto) Baso # (Auto) Abs Immat Gran (auto) Imm/Tot Granulo (auto) PT INR APTT PTT (Heparin Absorb) 78.6 H* Sodium Potassium Chloride Carbon Dioxide Anion Gap BUN Creatinine Est GFR ( Amer) Est GFR (Non-Af Amer) BUN/Creatinine Ratio Glucose Lactate Calcium Magnesium Total Bilirubin AST ALT Alkaline Phosphatase Troponin I High Sens 560.2 H* 592.2 H* NT-Pro-B Natriuret Pep 1633.0 Total Protein Albumin Globulin Albumin/Globulin Ratio Urine Color Urine Clarity Urine pH Ur Specific [place] Urine Protein Urine Glucose (UA) Urine Ketones Urine Occult Blood Urine Nitrite Urine Bilirubin Urine Urobilinogen Ur Leukocyte Esterase Urine RBC Urine WBC Ur Squamous Epith Cells Urine Crystals Urine Bacteria Urine Casts Urine Mucus Stool Occult Blood Blood Type Antibody Screen 09/02/24 09/02/24 09/02/24 10:30 10:01 09:18 WBC RBC Hgb Hct MCV MCH MCHC RDW Plt Count MPV Neut % (Auto) Lymph % (Auto) [place] % (Auto) Eos % (Auto) Baso % (Auto) Neut # (Auto) Lymph # (Auto) [place] # (Auto) Eos # (Auto) Baso # (Auto) Abs Immat Gran (auto) Imm/Tot Granulo (auto) PT INR APTT 30.3 PTT (Heparin Absorb) Sodium Potassium Chloride Carbon Dioxide Anion Gap BUN Creatinine Est GFR ( Amer) Est GFR (Non-Af Amer) BUN/Creatinine Ratio Glucose Lactate Calcium Magnesium Total Bilirubin AST ALT Alkaline Phosphatase Troponin I High Sens 507.4 H* NT-Pro-B Natriuret Pep Total Protein Albumin Globulin Albumin/Globulin Ratio Urine Color Urine Clarity Urine pH Ur Specific [place] Urine Protein Urine Glucose (UA) Urine Ketones Urine Occult Blood Urine Nitrite Urine Bilirubin Urine Urobilinogen Ur Leukocyte Esterase Urine RBC Urine WBC Ur Squamous Epith Cells Urine Crystals Urine Bacteria Urine Casts Urine Mucus Stool Occult Blood Negative Blood Type A Positive Antibody Screen Negative 09/02/24 09:15 WBC 8.2 RBC 4.94 Hgb 12.9 L Hct 41.5 L MCV 84.0 MCH 26.1 MCHC 31.1 RDW 15.4 H Plt Count 281 MPV 9.2 L Neut % (Auto) 73.3 Lymph % (Auto) 12.8 L [place] % (Auto) 10.6 Eos % (Auto) 2.6 Baso % (Auto) 0.6 Neut # (Auto) 6.0 Lymph # (Auto) 1.1 L [place] # (Auto) 0.9 H Eos # (Auto) 0.2 Baso # (Auto) 0.1 Abs Immat Gran (auto) 0.01 Imm/Tot Granulo (auto) 0.1 PT 11.1 INR 1.05 APTT PTT (Heparin Absorb) Sodium 143 Potassium 3.8 Chloride 103 Carbon Dioxide 32.0 Anion Gap 11.8 BUN 15.0 Creatinine 1.11 Est GFR ( Amer) >60 Est GFR (Non-Af Amer) >60 BUN/Creatinine Ratio 13.5 Glucose 149 H Lactate 1.3 Calcium 8.9 Magnesium Total Bilirubin 0.6 AST 21 ALT 24 Alkaline Phosphatase 77 Troponin I High Sens 456.8 H* NT-Pro-B Natriuret Pep Total Protein 7.0 Albumin 3.2 L Globulin 3.8 Albumin/Globulin Ratio 0.8 Urine Color Urine Clarity Urine pH Ur Specific [place] Urine Protein Urine Glucose (UA) Urine Ketones Urine Occult Blood Urine Nitrite Urine Bilirubin Urine Urobilinogen Ur Leukocyte Esterase Urine RBC Urine WBC Ur Squamous Epith Cells Urine Crystals Urine Bacteria Urine Casts Urine Mucus Stool Occult Blood Blood Type Antibody Screen Discharge Plan Discharge Disposition: [facility]
[2024-09-03] MEDS: LOSARTAN POTASSIUM 25 MG TABLET PO (08:44)
[2024-09-03] MEDS: METOPROLOL TARTRATE 25 MG TABLET PO (08:44)
[2024-09-03] MEDS: TAMSULOSIN HCL 0.4 MG CAPSULE PO (08:44)
[2024-09-03] MEDS: VENLAFAXINE HCL ER 150 MG CAPSULE PO (08:44)
[2024-09-03] MEDS: PANTOPRAZOLE SODIUM 40 MG VIAL IV (08:45)
[2024-09-03] MEDS: NITROGLYCERIN 2% 1 GRAM PACKET 0.5 GM TD (08:45)
--- NOTE | 2024-09-03 09:09 | CM.NOTE ---
Rounds made with Dr. Cat, discussed with pt about contacting [facility] for possible transfer. Pt had CP with elevated trop and would need heart cath. Dr. Cat will update pt after speaking with cardiology.
--- NOTE | 2024-09-03 09:17 | CM.NOTE ---
Important Message From [employer] discussed with pt, pt verbalizes understanding and signs paper. Original given to pt and copy placed in pt's chart.
[2024-09-03] MEDS: HEPARIN SODIUM 25,000 UNIT/500 ML D5W IV.SOLN 10 UNIT IV (09:27)
--- NOTE | 2024-09-03 11:32 | CM.NOTE ---
Talked with pt regarding being at [facility] for respite care and if he would like us to update them regarding him being transferred to [facility]. Pt states he has everything taken care of at this time.
[2024-09-03 12:42] LABS: PTT Heparin Monitor 67.8 sec (48.2-68.6)
== END 2024-09-03 12:29 | disposition short-term general hospital (02) | DRG 282 ==
LOC: ER 11:39 → ICU 12:39
PROVIDERS: Admitting Provider Family Medicine; Emergency Provider Emergency Medicine; PCP Family Medicine; Visit Provider Family Medicine
DX: I21.4 Non-ST elevation (NSTEMI) myocardial infarction (principal); F41.9 Anxiety disorder, unspecified; I25.10 Atherosclerotic heart disease of native coronary artery without angina pectoris; E78.5 Hyperlipidemia, unspecified; K21.9 Gastro-esophageal reflux disease without esophagitis; I10 Essential (primary) hypertension; R73.9 Hyperglycemia, unspecified; D64.9 Anemia, unspecified; R06.03 Acute respiratory distress; R09.02 Hypoxemia; R00.0 Tachycardia, unspecified; N40.0 Benign prostatic hyperplasia without lower urinary tract symptoms; Z87.891 Personal history of nicotine dependence; Z95.1 Presence of aortocoronary bypass graft; Z87.440 Personal history of urinary (tract) infections; Z79.899 Other long term (current) drug therapy; Z87.09 Personal history of other diseases of the respiratory system; Z90.2 Acquired absence of lung [part of]; Z98.890 Other specified postprocedural states
CPT/HCPCS: 36415; 71045; 80048; 80053; 81001; 83605; 83735; 83880; 84484; 85025; 85610; 85730; 86850; 86900; 86901; 93005; 93306; 93356; 94667; 94668; 94761; 96365; 96375; 96376; 99285; G0328; J1644

== ENCOUNTER 2024-09-07 13:35 | Emergency (ER) | payer MEDICARE, SELFPAY ==
[2024-09-07] VITALS (43 sets, daily range): BP systolic 91–155; BP diastolic 52–90; PULSE 74–114; TEMP 36.5–36.9; O2SAT 90–98; BMI 18.7
--- NOTE | 2024-09-07 13:52 | ECG_ITS ---
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
--- NOTE | 2024-09-07 13:55 | ED_ITS ---
<Statement entered by Annette Salinas MD - 09/08/24 07:46> I presented to the patient and evaluated him and spoke with him about the plan , and I agree with above documentation and the patient care plan was discussed with me and I agree on the evaluation mentioned above this documentation has been reviewed and approved. HPI - GI Bleed General Chief complaint: GI Bleed Stated complaint: ABDOMINAL PAIN Time Seen by Provider: 09/07/24 13:37 Source: patient Mode of arrival: walk-in History of Present Illness HPI Narrative: Patient is a 78-year-old male presents to the ER for evaluation of rectal bleeding. Patient was recently in our ER with epigastric pain and indigestion symptoms over the weekend was noted to have an NSTEMI. Patient was eventually transferred to [facility] [[email or web address] He reports having 2 cardiac stents placed on Tuesday, patient states he has been started on Plavix and aspirin. Patient reports he had a EGD and colonoscopy on Tuesday and was told he had a bleeding ulcer and they took care of it. Patient states he had a bowel movement this evening with bright red blood per rectum. He denies any nausea vomiting or abdominal pain. He denies any chest pain or shortness of breath. He is anxious as he was recently started on Plavix and aspirin. The patient was told he cannot come off his medications because of his cardiac stents that were placed. He does slightly hypotensive and tachycardic. Denies any syncopal episodes. complaint: Reports blood on toilet paper and blood streaked stool Onset (ago): hour(s) (1) Context: Reports history of GI bleed Associated symptoms: Reports denies other symptoms Treatments Prior to Arrival: Reports none Related Data Home Medications ?Medication ?Instructions ?Recorded ?Confirmed atorvastatin 40 mg tablet 40 mg PO BEDTIME 08/21/23 09/02/24 isosorbide mononitrate 60 mg 60 mg PO DAILY 08/21/23 09/02/24 tablet,extended release 24 hr losartan 25 mg tablet 25 mg PO DAILY 08/21/23 09/02/24 nitroglycerin 0.4 mg sublingual 0.4 mg sublingual Q5M PRN chest 08/21/23 09/02/24 tablet pain metoprolol succinate 25 mg 37.5 mg PO DAILY 09/24/23 09/02/24 tablet,extended release 24 hr mirtazapine 15 mg tablet 15 mg PO .qhs 09/02/24 09/02/24 tamsulosin 0.4 mg capsule 0.4 mg PO .qd 09/02/24 09/02/24 venlafaxine 150 mg 150 mg PO .qd 09/02/24 09/02/24 capsule,extended release 24 hr Allergies Allergy/AdvReac Type Severity Reaction Status Date / Time Penicillins Allergy Hives Verified 09/02/24 13:13 metformin AdvReac Intermediate Abdominal Verified 09/02/24 13:13 Pain Review of Systems ROS Constitutional Denies: fever, chills or change in weight Eyes Denies: change in vision or blurry vision Ears, nose, mouth, and throat Denies: throat pain or neck pain Cardiovascular Denies: chest pain, palpitations or edema Respiratory Denies: shortness of breath or cough Gastrointestinal Reports: blood in stool; Denies: abdominal pain or nausea Musculoskeletal Denies: back pain, neck pain or extremity pain Integumentary/Breast Denies: rash, itching or redness Neurological Denies: headache Psychiatric Denies: anxiety or mood swings Endocrine Denies: excessive urination [facility] Medical History (Updated 09/07/24 @ 17:27 by ÁNGELA Mullen) BPH (benign prostatic hyperplasia) ?N40.0 - Benign prostatic hyperplasia without lower urinary tract symptoms (ICD-10) Elevated troponin I level ?R79.89 - Other specified abnormal findings of blood chemistry (ICD-10) Respiratory distress ?R06.03 - Acute respiratory distress (ICD-10) Tachycardia ?R00.0 - Tachycardia, unspecified (ICD-10) Anemia ?D64.9 - Anemia, unspecified (ICD-10) Recurrent UTI ?N39.0 - Urinary tract infection, site not specified (ICD-10) Non-ST elevation CO (NSTEMI) ?I21.4 - Non-ST elevation (NSTEMI) myocardial infarction (ICD-10) Anxiety ?F41.9 - Anxiety disorder, unspecified (ICD-10) CAD (coronary artery disease) ?I25.10 - Atherosclerotic heart disease of [place] coronary artery without angina pectoris (ICD-10) Hyperlipidemia ?E78.5 - Hyperlipidemia, unspecified (ICD-10) Chronic GERD ?K21.9 - Gastro-esophageal reflux disease without esophagitis (ICD-10) Hypertension ?I10 - Essential (primary) hypertension (ICD-10) History of asbestosis ?Z87.09 - Personal history of other diseases of the respiratory system (ICD- 10) Femoral hernia ?K41.90 - Unilateral femoral hernia, without obstruction or gangrene, not specified as recurrent (ICD-10) Surgical History (Updated 09/07/24 @ 00:00 by ) Status post four vessel coronary artery bypass ?Z95.1 - Presence of aortocoronary bypass graft (ICD-10) H/O right inguinal hernia repair ?Z98.890 - Other specified postprocedural states (ICD-10) ?Z87.19 - Personal history of other diseases of the digestive system (ICD-10) History of lobectomy of lung ?Z90.2 - Acquired absence of lung [part of] (ICD-10) History of open heart surgery ?Z98.890 - Other specified postprocedural states (ICD-10) Family History (Updated 09/24/23 @ 02:06 by Yury Bunch) Brother Family history of cancer Family history of hypertension Social History (Updated 08/21/23 @ 22:50 by Cesilia Giang) Within the past year, how often did you have a drink containing alcohol: 4 or more times a week Within the past year, how many standard drinks containing alcohol did you have on a typical day: 3 or 4 Within the past year, how often did you have six or more drinks on one occasion: never Total score: 2 Score interpretation: A score of 4 or more indicates drinking is likely to affect patient's safety. Smoking status: Former smoker Non-prescribed substance use: denies use Previous occupational history: Retired Highest level of school completed/degree received: high school graduate Are you now , , , , never or living with a partner: In a typical week, how many times do you talk on the telephone with family, friends, or neighbors: 3 or more times per week How often do you get together with friends or relatives: 3 or more times per week How often do you attend yazidism or mu-ism services: never Little interest or pleasure in doing things: not at all Feeling down, depressed, or hopeless: not at all Feel stressed/tense/nervous/anxious/difficulty sleeping: rather much Life stressors: other Life stressor details: diagnosed with dementia Due to disability, difficulty making decisions: No Do you think of yourself as: straight/heterosexual Gender Identity: male Exam Narrative Exam Narrative: Nurses notes and vital signs reviewed and patient is not hypoxic. General: The patient appears well , but anxious. Patient seated on edge of cart. Skin: Warm, dry, no pallor noted. Head: Normocephalic, atraumatic Neck: Supple, trachea mid-line, no tenderness, no lymphadenopathy Eye: Pupils are equal, round and reactive to light, EOMI, mild subconjunctival pallor Ears, Nose, Mouth, and Throat: TM are clear, normal light reflex, oral mucosa is moist, no posterior oropharynx erythema or hypertrophy, uvula is mid-line Cardiovascular: Regular Rate and Rhythm Respiratory: Patient is in no distress, no accessory muscle use, lungs are clear to auscultation, no wheezing, rales or rhonchi. Chest Wall: no tenderness Back: non-tender, no CVA tenderness Musculoskeletal: normal ROM, no tenderness, no swelling, dressing noted to the right groin, no evidence of tenderness or swelling consistent with recent cardiac catheterization. GI: Normal bowel sounds, no tenderness to palpation, no masses appreciated. No rebound, guarding, or rigidity noted. : Rectal exam noted for gross bright red blood, good rectal tone, prostate nontender. No evidence of anal fissure or inflamed hemorrhoid. Neurological: A&O x4 Psychiatric: Cooperative Constitutional Vital Signs, click to edit/add: Last Vital Signs Temp 97.7 F 09/07/24 13:39 Pulse 84 09/07/24 15:30 Resp 18 09/07/24 15:30 BP 96/68 09/07/24 15:30 Pulse Ox 96 09/07/24 13:39 O2 Del Method Room Air 09/07/24 13:39 Course Vital Signs Vital signs: Vital Signs Temperature 97.7 F 09/07/24 13:39 Pulse Rate 114 H 09/07/24 13:39 Respiratory Rate 18 09/07/24 13:39 Blood Pressure 91/66 09/07/24 13:39 Pulse Oximetry 96 09/07/24 13:39 Oxygen Delivery Method Room Air 09/07/24 13:39 Temperature 97.7 F 09/07/24 13:39 Pulse Rate 84 09/07/24 15:30 Respiratory Rate 18 09/07/24 15:30 Blood Pressure 96/68 09/07/24 15:30 Pulse Oximetry 96 09/07/24 13:39 Oxygen Delivery Method Room Air 09/07/24 13:39 MDM - GI Bleed MDM Narrative Medical decision making narrative: Patient mentating well, he is very anxious, mostly social stress regarding the care of his who has dementia, 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 The patient has concerning history for GI bleed, recent NSTEMI with cardiac stent placements. He is on Plavix and aspirin with gross red blood noted on digital rectal exam. Without waiting for labs patient's history, type and screen was ordered along with 1 unit for blood transfusion. Patient reports that he has a full code, I also immediately had [facility] [[email or web address]] paged regarding the need for transfer given his recent cardiac history and recent EGD and colonoscopy that was performed there with report of gastric ulcer . Denies any chest pain. Patient had 2 IVs placed. Blood products pending. Attempted 1 view chest x-ray, patient refusing at this time. Patient reevaluated at 15:00 Patient has no complaints, resting comfortably in bed. We discussed he is occult blood positive, bright red blood noted on digital rectal exam. His hemoglobin is 9.8. Patient notes that he had the GI bleeding issue before the cardiac stents were placed. We discussed blood products as I had ordered 1 unit to be transfused given his active GI bleeding. Patient's blood pressure has improved with gentle IV fluid hydration. He is declining blood transfusion at this time but did sign consent. I am just frustrated, I want them to fix the problem. Patient stating that he does not need blood at this time. Patient advised that GI bleeding especially in the setting of blood thinners can be unpredictable and his clinical condition can rapidly deteriorate. Patient verbalized understanding but states he does not want to receive transfusion at this time. He is wanting to know the ETA of transfer to [facility] [[email or web address] He was advised that I did call them immediately upon exiting his room, but we have not yet heard back from them... Patient was able to secure placement for his for another evening. Spoke with transfer line at [facility] [[email or web address]] myself at [phone]. We have waited over an hour for return call from the hospitalist. She advised they are still processing patient's ahead of our phone call. She was able to tell me that he had a hemoglobin of 10 on 09/05. Previous was in the 's. Transfer line aware pt is declining blood products here. And I am concerned about the time needed to put her transportation and to transfer to their facility, as patient is active GI bleed with Plavix and aspirin and recent cardiac stenting. She advised that we did have to wait for the hospitalist to call back and declined for me to speak with the ER regarding a more time efficient transfer. 16:15 received phone call from [facility] [[email or web address]] that the hospitalist was in the ER, would call when they are free. Patient will have repeat troponin and H&H. Patient reevaluated, 16:30, we discussed his repeat hemoglobin now 8.3. Dropped from 9.8. Patient asymptomatic, vitals have been stable. He is agreeable to blood transfusion as we are not yet able to speak with [facility] [[email or web address]] regarding transfer. We discussed his recent cardiac event, and concern for active GI bleed with the risks and benefits discussed regarding his drop in hemoglobin and suspected active bleeding. Pt consenting to transfusion at this time of 1 unit of blood. Spoke with Rica at17:15 from [facility] [[email or web address]] regarding transfer, we did briefly consult with the ICU doctor that was familiar with him at discharge. He feels the patient will likely need IR intervention for his symptoms. Patient vitals noted to be HR 86 pressure occasionally dipping into the mid 70s over 50s. Patient's manual blood pressure last taken was 90/48. He is not currently having any symptoms. Patient has not had any further bloody bowel movements. We discussed his decline in his hemoglobin and the ICU attending recommended additional IV fluids and blood products. Stating that his cardiac condition requires his hemoglobin to be above 8. An additional liter of IV fluids was ordered along with another unit of blood. They are working on getting a bed to the stepdown unit. I advised he did not want to delay transport any further and we will begin arranging for EMS transport pending their room number given. They are trying to avoid an ER to ER transfer. The patient has been accepted to Dr. Gavin stepdown bed [facility] [[email or web address]] Lab Data Attestation: I reviewed the patient's lab results. Labs: Lab Results 09/07/24 09/07/24 09/07/24 Range/Units 13:50 13:56 16:08 WBC 9.7 (4.0-11.0) 10^3/uL RBC 3.44 L (4.70-6.10) 10^6/uL Hgb 9.8 L 8.3 L (14.0-18.0) g/dL Hct 30.2 L 25.7 L (42.0-54.0) % MCV 87.8 (80.0-94.0) fL MCH 28.5 (25.9-34.0) pg MCHC 32.5 (29.9-35.2) g/dL RDW 15.9 H (11.0-15.0) % Plt Count 224 (150-450) 10^3/uL MPV 9.4 L (9.5-13.5) fL Neut % (Auto) 80.9 H (43.0-75.0) % Lymph % (Auto) 9.3 L (20.5-60.0) % [place] % (Auto) 8.3 (1.7-12.0) % Eos % (Auto) 0.8 L (0.9-7.0) % Baso % (Auto) 0.4 (0.2-2.0) % Neut # (Auto) 7.8 H (1.4-6.5) 10^3/uL Lymph # (Auto) 0.9 L (1.2-3.8) 10^3/uL [place] # (Auto) 0.8 (0.3-0.8) 10^3/uL Eos # (Auto) 0.1 (0.0-0.7) 10^3/uL Baso # (Auto) 0.0 (0.0-0.1) 10^3/uL Abs Immat Gran (auto) 0.03 (0.00-0.03) 10^3/uL Imm/Tot Granulo (auto) 0.3 (0.0-0.5) % PT 11.4 (9.0-11.6) sec INR 1.08 APTT 24.7 (22.3-36.2) sec Sodium 142 (136-145) mmol/L Potassium 4.3 (3.5-5.1) mmol/L Chloride 105 (98-107) mmol/L Carbon Dioxide 31.6 (21.0-32.0) mmol/L Anion Gap 9.7 BUN 14.0 (7.0-18.0) mg/dL Creatinine 0.96 (0.70-1.30) mg/dL Est GFR ( Amer) >60 (>=60 mL/min/1.73m^2) Est GFR (Non-Af Amer) >60 (>=60 mL/min/1.73m^2) BUN/Creatinine Ratio 14.6 Glucose 143 H (74-106) mg/dL Lactate 1.8 (0.4-2.0) mmol/L Calcium 8.3 L (8.5-10.1) mg/dL Total Bilirubin 0.5 (0.2-1.0) mg/dL AST 17 (15-37) U/L ALT 17 (16-63) U/L Alkaline Phosphatase 60 (46-116) U/L Troponin I High Sens 174.9 H* 165.9 H* (4.0-76.1) pg/mL Total Protein 5.7 L (6.4-8.2) g/dL Albumin 2.6 L (3.4-5.0) g/dL Globulin 3.1 g/dL Albumin/Globulin Ratio 0.8 Lipase 20.0 (16.0-77.0) U/L Stool Occult Blood Positive A Blood Type A Positive Antibody Screen Negative Crossmatch See Detail ECG Data Attestation: I personally reviewed and interpreted this ECG as follows: Interpretation: EKG interpretation: Emergency Department physician interpretation,Sinus tachycardia 100bpm, no ectopy, no ST segment elevation, ST depression noted V4 V5 V6. T wave inversion in V4 V5 and V6 normal axis. Critical Care Time Critical Care Time Critical Care Time: Yes Total Critical Care Time: 60 Attestation: Critical Care Time: 60 minutes, critical care time is separate from any procedures that are performed. The following was considered in the determination of critical care but not limited to the level medical decision-making, intensive cardiac and/or respiratory monitor, frequent vital sign monitoring, evaluation of laboratory studies, evaluation of a radiographic studies, oxygen monitoring a nd constant monitoring. Multiple phone calls to stay on top of transfer process. Reassessing patient's vital signs. Discharge Plan Discharge Chief Complaint: GI Bleed Clinical Impression: Acute GI bleeding [facility] Time of Disposition Decision: 17:26 Discharge Location: [facility] Med Condition: Fair Mode of Transportation: EMS Prescriptions / Home Meds: No Action metoprolol succinate 25 mg tablet extended release 24 hr 37.5 mg PO DAILY atorvastatin 40 mg tablet 40 mg PO BEDTIME isosorbide mononitrate 60 mg tablet extended release 24 hr 60 mg PO DAILY losartan 25 mg tablet 25 mg PO DAILY nitroglycerin 0.4 mg tablet, sublingual 0.4 mg sublingual Q5M PRN (Reason: chest pain) mirtazapine 15 mg tablet 15 mg PO .qhs tamsulosin 0.4 mg capsule 0.4 mg PO .qd venlafaxine 150 mg capsule,extended release 24hr 150 mg PO .qd Print Language: Upper Sorbian Referrals: JADON RAY [Primary Care Provider] - 1 week
[2024-09-07] MEDS: PANTOPRAZOLE SODIUM 40 MG VIAL IV ×2 (14:06→14:34)
[2024-09-07 14:11] LABS: Basophils Percent Auto 0.4 % (0.2-2.0); Eosinophils Absolute Auto 0.1 10^3/uL (0.0-0.7); Eosinophils Percent Auto 0.8 % (0.9-7.0); Hematocrit 30.2 % (42.0-54.0); Hemoglobin 9.8 g/dL (14.0-18.0); Immature Granulocytes Abs Auto 0.03 10^3/uL (0.00-0.03); Immature Granulocytes Pct Auto 0.3 % (0.0-0.5); Lymphocytes Absolute Auto 0.9 10^3/uL (1.2-3.8); Lymphocytes Percent Auto 9.3 % (20.5-60.0); Mean Corpuscular HGB Conc 32.5 g/dL (29.9-35.2); Mean Corpuscular Hemoglobin 28.5 pg (25.9-34.0); Mean Corpuscular Volume 87.8 fL (80.0-94.0); Mean Platelet Volume 9.4 fL (9.5-13.5); Monocytes Absolute Auto 0.8 10^3/uL (0.3-0.8); Monocytes Percent Auto 8.3 % (1.7-12.0); Neutrophils Absolute Auto 7.8 10^3/uL (1.4-6.5); Neutrophils Percent Auto 80.9 % (43.0-75.0); Platelet Count 224 10^3/uL (150-450); Red Blood Count 3.44 10^6/uL (4.70-6.10); Red Cell Distribution Width 15.9 % (11.0-15.0); White Blood Count 9.7 10^3/uL (4.0-11.0)
[2024-09-07] MEDS: 0.9 % SODIUM CHLORIDE 1,000 ML 250 ML IV (14:18)
[2024-09-07 14:19] LABS: Alanine Aminotransferase 17 U/L (16-63); Albumin Globulin Ratio 0.8; Albumin Level 2.6 g/dL (3.4-5.0); Alkaline Phosphatase 60 U/L (46-116); Anion Gap 9.7; Aspartate Amino Transferase 17 U/L (15-37); BUN Creatinine Ratio 14.6; Bilirubin Total 0.5 mg/dL (0.2-1.0); Calcium 8.3 mg/dL (8.5-10.1); Carbon Dioxide 31.6 mmol/L (21.0-32.0); Chloride 105 mmol/L (98-107); Estimated GFR (African America >60 (>=60 mL/min/1.73m^2); Estimated GFR (Non-African Ame >60 (>=60 mL/min/1.73m^2); Globulin 3.1 g/dL; Glucose 143 mg/dL (74-106); Potassium 4.3 mmol/L (3.5-5.1); Sodium 142 mmol/L (136-145); Total Protein 5.7 g/dL (6.4-8.2)
[2024-09-07 14:21] LABS: Lactate/Lactic Acid 1.8 mmol/L (0.4-2.0)
[2024-09-07 14:24] LABS: Troponin I High Sensitivity 174.9 pg/mL (4.0-76.1)
[2024-09-07 14:38] LABS: INR 1.08; Partial Thromboplastin Time 24.7 sec (22.3-36.2); Prothrombin Time 11.4 sec (9.0-11.6)
[2024-09-07 14:55] LABS: Internal Control Within Normal Limits; Occult Blood Positive
[2024-09-07 16:16] LABS: Hematocrit 25.7 % (42.0-54.0); Hemoglobin 8.3 g/dL (14.0-18.0)
[2024-09-07 16:46] LABS: Troponin I High Sensitivity 165.9 pg/mL (4.0-76.1)
[2024-09-07] MEDS: 0.9 % SODIUM CHLORIDE 1,000 ML 999 ML IV (17:36)
[2024-09-07] MEDS: 0.9 % SODIUM CHLORIDE 1,000 ML 150 ML IV (19:37)
== END 2024-09-07 20:55 | disposition short-term general hospital (02) ==
PROVIDERS: Personal Emergency Response Attendant; Emergency Provider Emergency Medicine; PCP Family Medicine
DX: K92.2 Gastrointestinal hemorrhage, unspecified (principal); Z95.5 Presence of coronary angioplasty implant and graft; Z79.02 Long term (current) use of antithrombotics/antiplatelets; Z79.82 Long term (current) use of aspirin; Z87.891 Personal history of nicotine dependence
CPT/HCPCS: 36415; 80053; 83605; 83690; 84484; 85014; 85018; 85025; 85610; 85730; 86850; 86900; 86901; 93005; 96361; 96374; 99285; G0328; P9016

== ENCOUNTER 2024-09-16 11:50 | Emergency (ER) | payer MEDICARE, SELFPAY ==
[2024-09-16] VITALS (65 sets, daily range): BP systolic 87–144; BP diastolic 45–82; PULSE 66–119; TEMP 36.4–36.6; O2SAT 81–100; BMI 18.7
--- NOTE | 2024-09-16 11:59 | ECG_ITS ---
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
[2024-09-16 12:16] LABS: Hematocrit 24.7 % (42.0-54.0); Hemoglobin 7.9 g/dL (14.0-18.0); Mean Corpuscular Hemoglobin 28.6 pg (25.9-34.0); Mean Corpuscular Volume 89.5 fL (80.0-94.0); Mean Platelet Volume 9.5 fL (9.5-13.5); Platelet Count 310 10^3/uL (150-450); Red Cell Distribution Width 15.1 % (11.0-15.0)
[2024-09-16 12:36] LABS: INR 1.05; Prothrombin Time 11.1 sec (9.0-11.6)
[2024-09-16 12:38] LABS: Alanine Aminotransferase 15 U/L (16-63); Albumin Globulin Ratio 0.8; Albumin Level 2.5 g/dL (3.4-5.0); Alkaline Phosphatase 54 U/L (46-116); Anion Gap 12.9; Aspartate Amino Transferase 14 U/L (15-37); BUN Creatinine Ratio 18.8; Bilirubin Total 0.4 mg/dL (0.2-1.0); Calcium 8.3 mg/dL (8.5-10.1); Carbon Dioxide 30.2 mmol/L (21.0-32.0); Chloride 104 mmol/L (98-107); Estimated GFR (African America >60 (>=60 mL/min/1.73m^2); Estimated GFR (Non-African Ame >60 (>=60 mL/min/1.73m^2); Globulin 3.1 g/dL; Glucose 218 mg/dL (74-106); Potassium 4.1 mmol/L (3.5-5.1); Sodium 143 mmol/L (136-145); Total Protein 5.6 g/dL (6.4-8.2)
--- NOTE | 2024-09-16 12:52 | ED_ITS ---
HPI - GI Bleed General Chief complaint: GI Bleed Stated complaint: ABDOMINAL PAIN Time Seen by Provider: 09/16/24 11:59 Source: patient Mode of arrival: ambulance Limitations: no limitations History of Present Illness HPI Narrative: The patient have a recurring problem of rectal bleeding mostly painless that has been going on at least for the last 2 days,, he was evaluated almost 10 days ago with a similar presentation and was transferred to [facility] during which she was observed The patient is actively taking Plavix after he had a recent cardiac stent The patient is complaining of being symptomatic after bleeding for the last 2 days on multiple occasions including at least 5 times, the patient denies any abdominal pain but he mentioned that he feels dizzy whenever he is standing up, Related Data Home Medications ?Medication ?Instructions ?Recorded ?Confirmed isosorbide mononitrate 60 mg 60 mg PO DAILY 08/21/23 09/16/24 tablet,extended release 24 hr losartan 25 mg tablet 25 mg PO DAILY 08/21/23 09/16/24 nitroglycerin 0.4 mg sublingual 0.4 mg sublingual Q5M PRN chest 08/21/23 09/16/24 tablet pain metoprolol succinate 25 mg 37.5 mg PO DAILY 09/24/23 09/16/24 tablet,extended release 24 hr mirtazapine 15 mg tablet 15 mg PO .qhs 09/02/24 09/16/24 tamsulosin 0.4 mg capsule 0.4 mg PO .qd 09/02/24 09/16/24 venlafaxine 150 mg 150 mg PO .qd 09/02/24 09/16/24 capsule,extended release 24 hr clopidogrel 75 mg tablet 75 mg PO DAILY 09/16/24 09/16/24 pantoprazole 40 mg tablet,delayed 40 mg PO BID 09/16/24 09/16/24 release Allergies Allergy/AdvReac Type Severity Reaction Status Date / Time Penicillins Allergy Hives Verified 09/02/24 13:13 metformin AdvReac Intermediate Abdominal Verified 09/02/24 13:13 Pain Review of Systems ROS Status of ROS 10 or more systems reviewed and unremark able except as noted in history and below [facility] Medical History (Updated 09/16/24 @ 17:38 by Annette Salinas MD) BPH (benign prostatic hyperplasia) ?N40.0 - Benign prostatic hyperplasia without lower urinary tract symptoms (ICD-10) Elevated troponin I level ?R79.89 - Other specified abnormal findings of blood chemistry (ICD-10) Respiratory distress ?R06.03 - Acute respiratory distress (ICD-10) Tachycardia ?R00.0 - Tachycardia, unspecified (ICD-10) Anemia ?D64.9 - Anemia, unspecified (ICD-10) Recurrent UTI ?N39.0 - Urinary tract infection, site not specified (ICD-10) Non-ST elevation IA (NSTEMI) ?I21.4 - Non-ST elevation (NSTEMI) myocardial infarction (ICD-10) Anxiety ?F41.9 - Anxiety disorder, unspecified (ICD-10) CAD (coronary artery disease) ?I25.10 - Atherosclerotic heart disease of [place] coronary artery without angina pectoris (ICD-10) Hyperlipidemia ?E78.5 - Hyperlipidemia, unspecified (ICD-10) Chronic GERD ?K21.9 - Gastro-esophageal reflux disease without esophagitis (ICD-10) Hypertension ?I10 - Essential (primary) hypertension (ICD-10) History of asbestosis ?Z87.09 - Personal history of other diseases of the respiratory system (ICD- 10) Femoral hernia ?K41.90 - Unilateral femoral hernia, without obstruction or gangrene, not specified as recurrent (ICD-10) Surgical History (Updated 09/07/24 @ 00:00 by ) Status post four vessel coronary artery bypass ?Z95.1 - Presence of aortocoronary bypass graft (ICD-10) H/O right inguinal hernia repair ?Z98.890 - Other specified postprocedural states (ICD-10) ?Z87.19 - Personal history of other diseases of the digestive system (ICD-10) History of lobectomy of lung ?Z90.2 - Acquired absence of lung [part of] (ICD-10) History of open heart surgery ?Z98.890 - Other specified postprocedural states (ICD-10) Family History (Updated 09/24/23 @ 02:06 by Yury Bunch) Brother Family history of cancer Family history of hypertension Social History (Updated 08/21/23 @ 22:50 by Cesilia Giang) Within the past year, how often did you have a drink containing alcohol: 4 or more times a week Within the past year, how many standard drinks containing alcohol did you have on a typical day: 3 or 4 Within the past year, how often did you have six or more drinks on one occasion: never Total score: 2 Score interpretation: A score of 4 or more indicates drinking is likely to affect patient's safety. Smoking status: Former smoker Non-prescribed substance use: denies use Previous occupational history: Retired Highest level of school completed/degree received: high school graduate Are you now , , , , never or living with a partner: In a typical week, how many times do you talk on the telephone with family, fr iends, or neighbors: 3 or more times per week How often do you get together with friends or relatives: 3 or more times per week How often do you attend hindu or zoroastrianism services: never Little interest or pleasure in doing things: not at all Feeling down, depressed, or hopeless: not at all Feel stressed/tense/nervous/anxious/difficulty sleeping: rather much Life stressors: other Life stressor details: diagnosed with dementia Due to disability, difficulty making decisions: No Do you think of yourself as: straight/heterosexual Gender Identity: male Exam Narrative Exam Narrative: Nurses notes and vital signs reviewed and patient is not hypoxic. General: Well-appearing and in no apparent distress. Skin: Warm, dry, no pallor noted. No rash. Head: Normocephalic, atraumatic. Neck: Supple, non-tender. Eye: Pupils are equal, round and EOMI. No scleral icterus. Ears, Nose, Mouth, and Throat: TM are clear, no nasal mucosal hypertrophy. Oral mucosa is moist, no posterior oropharynx erythema, uvula is mid-line Cardiovascular: Regular Rate and Rhythm without murmur, gallop or rub. Respiratory: No accessory muscle use or respiratory distress. Lungs are clear to auscultation, no wheezing, rales or rhonchi Chest Wall: no tenderness Back: No midline thoracic or lumbar vertebral tenderness. No CVA tenderness Musculoskeletal: normal ROM, no calf or popliteal tenderness, no lower extremity edema/swelling GI: Abdomen is soft, non-distended. Normal bowel sounds. No masses appreciated. No tenderness to palpation. No rebound, guarding, or rigidity noted. Neurological: A&O x4. No cranial nerve dysfunction observed. No truncal ataxia. Moves all extremities. Sensation intact. Psychiatric: Cooperative and interactive. Normal mood and affect. Constitutional Vital Signs, click to edit/add: Last Vital Signs Temp 97.6 F 09/16/24 11:49 Pulse 92 H 09/16/24 16:54 Resp 24 H 09/16/24 16:54 BP 92/62 09/16/24 16:54 Pulse Ox 100 09/16/24 16:54 O2 Del Method Room Air 09/16/24 11:49 Course Vital Signs Vital signs: Vital Signs Temperature 97.6 F 09/16/24 11:49 Pulse Rate 66 09/16/24 11:49 Respiratory Rate 18 09/16/24 11:49 Blood Pressure 144/73 H 09/16/24 11:49 Pulse Oximetry 95 09/16/24 11:49 Oxygen Delivery Method Room Air 09/16/24 11:49 Temperature 97.6 F 09/16/24 11:49 Pulse Rate 92 H 09/16/24 16:54 Respiratory Rate 24 H 09/16/24 16:54 Blood Pressure 92/62 09/16/24 16:54 Pulse Oximetry 100 09/16/24 16:54 Oxygen Delivery Method Room Air 09/16/24 11:49 MDM - GI Bleed MDM Narrative Medical decision making narrative: The patient is definitely orthostatic when standing up his blood pressure drops from 120 systolic to 90 The patient did not have any significant lower GI bleeding when he was in the ER he had some blood when he wipes only but the patient hemoglobin is 7.9 with a previous workup showing the hemoglobin above that level before this The patient is coming with a lower GI bleed that is painless and he would need further evaluation and monitoring in case of continuous bleeding specially that the patient is taking Plavix We cannot stop the Plavix right now for the risk of restenosis of the stents Right now the patient is stable vitals are within normal and he will be kept monitored until he is transferred to in [facility] from the GI service Right now the patient with hemoglobin of 7.9 and heart rate 95 blood pressure is 115 /72 the patient is being monitored Lab Data Labs: Lab Results 09/16/24 Range/Units 12:08 WBC 5.0 (4.0-11.0) 10^3/uL RBC 2.76 L (4.70-6.10) 10^6/uL Hgb 7.9 L (14.0-18.0) g/dL Hct 24.7 L (42.0-54.0) % MCV 89.5 (80.0-94.0) fL MCH 28.6 (25.9-34.0) pg MCHC 32.0 (29.9-35.2) g/dL RDW 15.1 H (11.0-15.0) % Plt Count 310 (150-450) 10^3/uL MPV 9.5 (9.5-13.5) fL Seg Neuts % (Manual) 78.0 H (43.0-75.0) Lymphocytes % (Manual) 20.0 L (20.5-60.0) % Monocytes % (Manual) 2.0 (1.7-12.0) % Eosinophils % (Manual) 0.0 L (0.9-7.0) % Basophils % (Manual) 0.0 L (0.2-2.0) % Neutrophils # (Manual) 3.90 (1.4-6.5) 10^3/uL Lymphocytes # (Manual) 1.00 L (1.20-3.80) 10^3/uL Monocytes # (Manual) 0.10 L (0.30-0.80) 10^3/uL Eosinophils # (Manual) 0.00 (0.00-0.70) 10^3/uL Basophils # (Manual) 0.00 (0.00-0.10) 10^3/uL PT 11.1 (9.0-11.6) sec INR 1.05 Sodium 143 (136-145) mmol/L Potassium 4.1 (3.5-5.1) mmol/L Chloride 104 (98-107) mmol/L Carbon Dioxide 30.2 (21.0-32.0) mmol/L Anion Gap 12.9 BUN 19.0 H (7.0-18.0) mg/dL Creatinine 1.01 (0.70-1.30) mg/dL Est GFR ( Amer) >60 (>=60 mL/min/1.73m^2) Est GFR (Non-Af Amer) >60 (>=60 mL/min/1.73m^2) BUN/Creatinine Ratio 18.8 Glucose 218 H (74-106) mg/dL Calcium 8.3 L (8.5-10.1) mg/dL Total Bilirubin 0.4 (0.2-1.0) mg/dL AST 14 L (15-37) U/L ALT 15 L (16-63) U/L Alkaline Phosphatase 54 (46-116) U/L Troponin I High Sens 21.0 (4.0-76.1) pg/mL Total Protein 5.6 L (6.4-8.2) g/dL Albumin 2.5 L (3.4-5.0) g/dL Globulin 3.1 g/dL Albumin/Globulin Ratio 0.8 Blood Type A Positive Antibody Screen Negative Discharge Plan Discharge Chief Complaint: GI Bleed Clinical Impression: Acute lower gastrointestinal bleeding Patient Disposition: [facility] Time of Disposition Decision: 17:37 Discharge location: [facility]
[2024-09-16 14:40] LABS: Red Blood Count 2.76 10^6/uL (4.70-6.10)
[2024-09-16 18:17] LABS: Hemoglobin 7.4 g/dL (14.0-18.0)
[2024-09-16 18:24] LABS: Hematocrit 23.6 % (42.0-54.0)
[2024-09-16] MEDS: 0.9 % SODIUM CHLORIDE 250 ML 10 ML IV (20:25)
--- NOTE | 2024-09-16 21:01 | PC.NURSE ---
Unable to document Blood product that started at 2034, IT called and It unable to help with this problem. Tried multiple computers with no success. Blood started at 125ml/hr, vitals remained stable for the first 30 min, blood product increased prior to transport to 175 ml/hr with a manual Bp 120/60. Pt leaves alert and appropriate and with personal belongings.
== END 2024-09-16 21:18 | disposition short-term general hospital (02) ==
PROVIDERS: Emergency Provider Emergency Medicine; PCP Family Medicine
DX: K92.2 Gastrointestinal hemorrhage, unspecified (principal); Z95.5 Presence of coronary angioplasty implant and graft; Z79.02 Long term (current) use of antithrombotics/antiplatelets; Z87.891 Personal history of nicotine dependence
CPT/HCPCS: 36415; 36430; 80053; 84484; 85007; 85014; 85018; 85027; 85610; 86850; 86900; 86901; 86923; 93005; 99285; P9016

== ENCOUNTER 2024-09-28 16:42 | Outpatient (OUT) | payer MEDICARE, SELFPAY ==
[2024-09-28 16:58] LABS: Basophils Absolute Auto 0.1 10^3/uL (0.0-0.1); Basophils Percent Auto 0.8 % (0.2-2.0); Eosinophils Absolute Auto 0.3 10^3/uL (0.0-0.7); Eosinophils Percent Auto 4.4 % (0.9-7.0); Hematocrit 31.4 % (42.0-54.0); Hemoglobin 9.6 g/dL (14.0-18.0); Immature Granulocytes Abs Auto 0.04 10^3/uL (0.00-0.03); Immature Granulocytes Pct Auto 0.6 % (0.0-0.5); Lymphocytes Absolute Auto 1.2 10^3/uL (1.2-3.8); Lymphocytes Percent Auto 17.5 % (20.5-60.0); Mean Corpuscular HGB Conc 30.6 g/dL (29.9-35.2); Mean Corpuscular Volume 94.9 fL (80.0-94.0); Mean Platelet Volume 9.4 fL (9.5-13.5); Monocytes Absolute Auto 0.8 10^3/uL (0.3-0.8); Neutrophils Absolute Auto 4.3 10^3/uL (1.4-6.5); Neutrophils Percent Auto 64.7 % (43.0-75.0); Platelet Count 380 10^3/uL (150-450); Red Blood Count 3.31 10^6/uL (4.70-6.10); Red Cell Distribution Width 16.8 % (11.0-15.0); White Blood Count 6.6 10^3/uL (4.0-11.0)
== END 2024-09-28 16:43 | disposition home or self-care (01) ==
PROVIDERS: PCP Family Medicine
DX: K92.2 Gastrointestinal hemorrhage, unspecified (principal)
CPT/HCPCS: 36415; 85025

== ENCOUNTER 2024-10-01 12:55 | Outpatient (OUT) | payer MEDICARE, SELFPAY ==
[2024-10-01 14:18] LABS: Hematocrit 33.6 % (42.0-54.0); Mean Corpuscular HGB Conc 29.8 g/dL (29.9-35.2); Mean Corpuscular Hemoglobin 28.8 pg (25.9-34.0); Mean Corpuscular Volume 96.8 fL (80.0-94.0); Mean Platelet Volume 9.8 fL (9.5-13.5); Platelet Count 329 10^3/uL (150-450); Red Blood Count 3.47 10^6/uL (4.70-6.10); Red Cell Distribution Width 17.8 % (11.0-15.0); White Blood Count 5.2 10^3/uL (4.0-11.0)
[2024-10-01 14:51] LABS: Lymphocytes Absolute Manual 0.52 10^3/uL (1.20-3.80); Monocytes Absolute Manual 0.31 10^3/uL (0.30-0.80); Segmented Neut Absolute Manual 4.26 10^3/uL (1.4-6.5)
== END 2024-10-01 12:56 | disposition home or self-care (01) ==
LOC: LAB 12:57
PROVIDERS: PCP Family Medicine; Visit Provider Family Medicine
DX: D62 Acute posthemorrhagic anemia (principal)
CPT/HCPCS: 36415; 85007; 85027

== ENCOUNTER 2024-10-05 07:32 | Outpatient (RCR) | payer MEDICARE, SELFPAY ==
[2024-10-05 13:30] VITALS: BP 130/70; PULSE 95; TEMP 36.6; O2SAT 95
[2024-10-05] MEDS: FERUMOXYTOL 510 MG in 0.9 % SODIUM CHLORIDE 100 ML 234 MG IV (13:46)
== END 2024-10-20 23:59 | disposition home or self-care (01) ==
LOC: INF 07:32
PROVIDERS: PCP Family Medicine
DX: Z13.9 Encounter for screening, unspecified (principal)
CPT/HCPCS: 96365; Q0138

== ENCOUNTER 2024-11-22 11:32 | Outpatient (OUT) | payer MEDICARE, SELFPAY ==
[2024-11-22 12:09] LABS: Basophils Percent Auto 0.4 % (0.2-2.0); Eosinophils Absolute Auto 0.1 10^3/uL (0.0-0.7); Eosinophils Percent Auto 1.1 % (0.9-7.0); Hematocrit 47.9 % (42.0-54.0); Hemoglobin 14.8 g/dL (14.0-18.0); Immature Granulocytes Abs Auto 0.02 10^3/uL (0.00-0.03); Immature Granulocytes Pct Auto 0.3 % (0.0-0.5); Lymphocytes Absolute Auto 0.9 10^3/uL (1.2-3.8); Lymphocytes Percent Auto 12.1 % (20.5-60.0); Mean Corpuscular HGB Conc 30.9 g/dL (29.9-35.2); Mean Corpuscular Hemoglobin 27.4 pg (25.9-34.0); Mean Corpuscular Volume 88.5 fL (80.0-94.0); Monocytes Absolute Auto 0.7 10^3/uL (0.3-0.8); Monocytes Percent Auto 9.6 % (1.7-12.0); Neutrophils Absolute Auto 5.5 10^3/uL (1.4-6.5); Neutrophils Percent Auto 76.5 % (43.0-75.0); Platelet Count 239 10^3/uL (150-450); Red Blood Count 5.41 10^6/uL (4.70-6.10); Red Cell Distribution Width 14.7 % (11.0-15.0); White Blood Count 7.2 10^3/uL (4.0-11.0)
[2024-11-22 12:40] LABS: Anion Gap 9.9; BUN Creatinine Ratio 17.4; Carbon Dioxide 31.3 mmol/L (21.0-32.0); Chloride 100 mmol/L (98-107); Estimated GFR (African America >60 (>=60 mL/min/1.73m^2); Estimated GFR (Non-African Ame >60 (>=60 mL/min/1.73m^2); Glucose 197 mg/dL (74-106); Potassium 4.2 mmol/L (3.5-5.1); Sodium 137 mmol/L (136-145)
== END 2024-11-22 11:33 | disposition home or self-care (01) ==
LOC: LAB 11:35
PROVIDERS: PCP Family Medicine; Visit Provider Internal Medicine Cardiovascular Disease
DX: I50.42 Chronic combined systolic (congestive) and diastolic (congestive) heart failure (principal); D50.0 Iron deficiency anemia secondary to blood loss (chronic)
CPT/HCPCS: 36415; 80048; 85025

== ENCOUNTER 2024-12-26 13:14 | Outpatient (OUT) | payer MEDICARE, SELFPAY ==
--- NOTE | 2024-12-26 13:00 | CA_ITS ---
Patient Name: YOSSI BOOTHE MR#: [id number] : 1945 Exam Date: 12/26/2024 Ordering Doctor: DR. Tree Hernandez M.D. ECHOCARDIOGRAM REPORT PROCEDURE: CA ECHO DOPPLER COMPLETE INDICATIONS: Chronic combined systolic and diastolic heart failure, CABGx4, cardiac stents, [place], COPD COMPARISON: None. DESCRIPTION: COMPLETE ECHOCARDIOGRAM Real-time transthoracic echocardiography with 2D, M-mode, spectral and color flow Doppler performed. QUALITY: Technical quality was good. LEFT VENTRICLE: Normal chamber size. Thickened septal wall. There is akinesis of the mid and distal septum and mid and distal inferior wall with good contractility of the remaining segments. Overall systolic function is mildly to moderately reduced. LV EF: Mildly to moderately reduced left ventricular ejection fraction, (40%). DIASTOLIC: ATRIAL SEPTUM: Visually appears intact. LEFT ATRIUM: Normal chamber size. RIGHT ATRIUM: Normal chamber size. RIGHT VENTRICLE: Normal chamber size. Normal right ventricular systolic function. TRICUSPID VALVE: Normal mobility and thickness. No stenosis and no regurgitation. Unable to assess right-sided pressures due to lack of measurable tricuspid regurgitation. MITRAL VALVE: Normal mobility and thickness. No evidence of mitral valve stenosis. Mild mitral annular calcification. Mild mitral regurgitation. AORTIC VALVE: Normal trileaflet appearance. Mildly calcified aortic valve. Mildly diminished mobility. No evidence of aortic valve stenosis. No aortic regurgitation. AORTIC ROOT: Normal diameter and appearance. PULMONIC VALVE: Normal thickness and mobility. No stenosis. No regurgitation. PERICARDIUM: No evidence of pericardial effusion. IVC: Collapses with inspirations. PLEURA: CONCLUSION: 1. The left ventricle is normal in size with segmental wall motion involving the mid and distal inferior wall and septum. Global systolic function is mildly to moderately reduced. Estimated LVEF is 40%. 2. Normal right ventricular size and systolic function. 3. Mild mitral regurgitation. 4. Unable to assess right-sided pressures due to lack of measurable tricuspid regurgitation. Adult Echocardiography Procedure Report Left Ventricle LVEDD (3.7 - 5.6 cm): 3.76 cm LVESD (2.2 - 4.0 cm): 3.37 cm LVIVS thickness (0.6 - 1.2 cm): 1.49 cm LVPW thickness (0.5 - 1.0 cm): 0.93 cm e': 0.07 m/s E - e': 5.72 LVOT Max Gradient: 3.57 mm[Hg], 3.33 mm[Hg] Peak Velocity (LVOT): 0.94 m/s, 0.91 m/s LVOT Diameter 2.16 cm Left Atrium LA Volume Index (2D A2C): 27.16 ml/m2 Left Atrium Systolic Dimension: 3.43 cm Mitral Valve MV E to A Ratio: 0.38 Mitral Valve A-Wave Peak Velocity: 1.04 m/s Mitral Valve E-Wave Peak Velocity: 0.39 m/s Right Ventricle Aorta AO Root Diam: 3.41 cm Aortic Valve AoV Area (Peak Sadiq): 3.16 cm2, 3.16 cm2 AoV Area (VTI): 3.02 cm2, 3.02 cm2 Peak Velocity(Antegrade Flow): 1.10 m/s Peak Gradient(Antegrade Flow): 4.80 mm[Hg] Mean Velocity(Antegrade Flow): 0.80 m/s Mean Gradient(Antegrade Flow): 2.78 mm[Hg] Velocity Time Integral: 21.37 cm Tricuspid Valve Pulmonic Valve Mean Gradient: 2.11 mm[Hg] Mean Velocity: 0.69 m/s Peak Velocity: 1.01 m/s, 0.93 m/s Peak Gradient: 3.48 mm[Hg], 4.09 mm[Hg] Right Atrium Right Atrium Systolic Pressure: 38.11 ml, 38.11 ml Dictated by: Carlo Andrade M.D. on 12/27/2024 at 13:45 Approved by: Carlo Andrade M.D. on 12/27/2024 at 13:49
== END 2024-12-26 13:15 | disposition home or self-care (01) ==
LOC: CARD 13:15
PROVIDERS: PCP Family Medicine; Visit Provider Internal Medicine Cardiovascular Disease
DX: I50.42 Chronic combined systolic (congestive) and diastolic (congestive) heart failure (principal)
CPT/HCPCS: 93306

== ENCOUNTER 2025-01-11 10:02 | Outpatient (OUT) | payer MEDICARE, SELFPAY ==
[2025-01-11 10:42] LABS: Alanine Aminotransferase 21 U/L (16-63); Anion Gap 11.3; Aspartate Amino Transferase 24 U/L (15-37); BUN Creatinine Ratio 19.4; Calcium 9.2 mg/dL (8.5-10.1); Carbon Dioxide 30.1 mmol/L (21.0-32.0); Chloride 103 mmol/L (98-107); Chol HDL Ratio 1.8; Cholesterol 159 mg/dL (<=200); Estimated GFR (African America >60 (>=60 mL/min/1.73m^2); Estimated GFR (Non-African Ame >60 (>=60 mL/min/1.73m^2); Glucose 125 mg/dL (74-106); HDL Cholesterol 90 mg/dL (40-60); Magnesium 1.9 mg/dL (1.8-2.4); Potassium 4.4 mmol/L (3.5-5.1); Sodium 140 mmol/L (136-145); Triglycerides 54 mg/dL (<=150); VLDL CHOLESTEROL 10.8 mg/dL
== END 2025-01-11 10:03 | disposition home or self-care (01) ==
LOC: LAB 10:03
PROVIDERS: PCP Family Medicine; Visit Provider Internal Medicine Cardiovascular Disease
DX: I25.709 Atherosclerosis of coronary artery bypass graft(s), unspecified, with unspecified angina pectoris (principal); E78.00 Pure hypercholesterolemia, unspecified; I10 Essential (primary) hypertension
CPT/HCPCS: 36415; 80048; 80061; 83735; 84450; 84460

== ENCOUNTER 2025-09-02 09:16 | Outpatient (OUT) | payer MEDICARE, SELFPAY ==
--- NOTE | 2025-09-02 09:46 | CT_ITS ---
The [address] [address] Patient Name: YOSSI BOOTHE MRN: [id number] date: 1945 Sex: M Assigned Patient Location: LAB Current Patient Location: LAB Accession/Order Number: [id number] Exam Date: 09/02/2025 10:30 Report Date: 09/02/2025 12:29 At the request of: MEGAN HARRISON MD Procedure: CT abdomen pelvis wo/w con CT ABDOMEN AND PELVIS WITHOUT AND WITH INTRAVENOUS CONTRAST COMPARISON: 09/23/2023 CLINICAL DATA: History of bladder tumor, BPH and urinary obstruction. Spiral images were obtained through the abdomen pelvis before and after intravenous administration of 100 mL of Omnipaque 300. This CT exam was performed using one or more following dose reduction techniques: Automated exposure control, adjustment of the mA and/or kV according to patient size, or use of iterative reconstruction technique. Limited cuts through the lung bases again show a small to moderate size hiatal hernia. There is atelectasis and/or scarring as well as calcified pleural plaque on both sides. The kidneys are within normal limits for size, position and contour. There is minimal perinephric fibrofatty stranding. Precontrast there is some renal vascular disease however no definite renal stones. No ureteral or bladder stones are identified. Following contrast administration, the renal nephrograms are symmetric. No hydronephrosis is seen. No renal mass lesions are identified. The ureters are segmentally opacified. There is a slightly enlarged prostate with mass effect at the bladder trigone. The urinary bladder is not well-distended on any of the series. The wall is thickened and there are small bladder wall diverticula and minor perivesical stranding. No intraluminal abnormalities are present. No calcified gallstones are present. No intrahepatic masses are seen. The spleen, pancreas and adrenal glands show no acute findings. There is atherosclerotic plaque at the aorta, iliac and some of the visceral arteries. No lymphadenopathy or ascites is seen. The small bowel loops are not dilated. There is air and stool along the colon. Scattered colonic diverticula are noted. Mild degenerative changes are present at the spine, greatest at the lower facets. There is similar mild concavity at superior endplate of L3. Images through the pelvis show normal caliber small bowel loops. No appendiceal inflammation is present. There are distal colonic diverticula, without active inflammation. No ascites is seen. There is additional atherosclerotic disease. CT/CT abdomen pelvis wo/w con IMPRESSION: CALCIFIED PLEURAL PLAQUE. HIATAL HERNIA. NO OBSTRUCTIVE UROPATHY OR STONE DISEASE. MILD PROSTATE HYPERTROPHY. URINARY BLADDER WALL THICKENING AND BLADDER WALL DIVERTICULA THAT MAY RELATE TO BLADDER OUTLET OBSTRUCTION. MODERATE ATHEROSCLEROTIC DISEASE. DIVERTICULOSIS. Impression dictated by: Korin Rivera M.D. 09/02/2025 12:29 PM Dictation Location: [place] [address] Electronically authenticated by: [id number] Y Date: 09/02/2025 12:29
[2025-09-02 09:59] LABS: Estimated GFR (African America >60 (>=60 mL/min/1.73m^2); Estimated GFR (Non-African Ame >60 (>=60 mL/min/1.73m^2)
== END 2025-09-02 09:17 | disposition home or self-care (01) ==
LOC: LAB 09:24
PROVIDERS: Pathology Anatomic Pathology & Clinical Pathology; PCP Family Medicine; Visit Provider Urology
DX: D49.4 Neoplasm of unspecified behavior of bladder (principal); N40.1 Benign prostatic hyperplasia with lower urinary tract symptoms; K44.9 Diaphragmatic hernia without obstruction or gangrene; K57.90 Diverticulosis of intestine, part unspecified, without perforation or abscess without bleeding
CPT/HCPCS: 36415; 74178; 82565; Q9967